=== PATIENT | male | born 1970 | race Hispanic/Latino ===

== ENCOUNTER 2019-06-07 01:59 | Inpatient (IN) | payer MEDICARE ==
--- NOTE | 2019-06-07 03:14 | XRay Report ---
CHEST 1 VIEW INDICATION: tachycardia. COMPARISON: 03/03/2018 is compared FINDINGS: SUPPORT DEVICES: None. HEART / MEDIASTINUM: No significant abnormality. LUNGS / PLEURA: Diffuse increased interstitial markings are noted. Patchy parenchymal changes present both lower lobes with a moderate size left pleural effusion No pneumothorax. ADDITIONAL FINDINGS: IMPRESSION: 1. 1. Persistent airspace changes left lower lobe with associated left pleural effusion 2. Persistent prominent interstitial markings 3. Progressive airspace changes right lower lobe Signer Name: Steven Huerta MD Signed: 06/07/2019 3:10 AM Workstation Name: [id number]
[2019-06-07] MEDS ORDERED: VANCOMYCIN/NS 1 GM/250 ML 1 GM/250 ML BAG IV ONE (03:16)
[2019-06-07] MEDS ORDERED: PIPERACILLIN/TAZOBACTAM 3.375 3.375 GM/50 ML BAG IV ONE (03:16)
[2019-06-07] MEDS ORDERED: methylPREDNISolone Sod Succinate 125 MG/2 ML INJ IV ONE (03:18)
[2019-06-07] MEDS ORDERED: IPRATROPIUM/ALBUTEROL SULFATE 3 ML AMPUL.NEB IH ONE (03:18)
[2019-06-07 03:26] LABS: Basophils % (Auto) 0.5 % (0.0-1.8); Eosinophils # (Auto) 0.3 K/mm3 (0.0-0.4); Eosinophils % (Auto) 3.4 % (0.0-4.3); Hematocrit 32.9 % (35.5-45.6); Hemoglobin 10.9 gm/dl (11.8-15.2); Lymphocytes # (Auto) 1.2 K/mm3 (1.2-5.4); Lymphocytes % (Auto) 13.2 % (13.4-35.0); Mean Corpuscular HGB Conc 33 % (32-34); Mean Corpuscular Volume 95 fl (84-94); Monocytes # (Auto) 0.7 K/mm3 (0.0-0.8); Monocytes % (Auto) 7.2 % (0.0-7.3); Platelet Count 280 K/mm3 (140-440); Red Blood Count 3.46 M/mm3 (3.65-5.03)
[2019-06-07] MEDS ORDERED: VANCOMYCIN 2,000 MG in SODIUM CHLORIDE 0.9% 500 ML 500 ML IV ONE (03:30)
[2019-06-07 03:37] LABS: INR 0.95 (0.87-1.13)
[2019-06-07 03:38] LABS: Partial Thromboplastin Time 28.7 Sec. (24.2-36.6)
[2019-06-07 03:51] LABS: Alanine Aminotransferase 6 units/L (7-56); Albumin 3.6 g/dL (3.9-5); BUN/Creatinine Ratio 40; Blood Urea Nitrogen 48 mg/dL (9-20); Calcium 9.2 mg/dL (8.4-10.2); Hemolysis Index 2
[2019-06-07 04:14] LABS: Chol/HDL Ratio 4.57 %
[2019-06-07] MEDS ORDERED: ASPIRIN 81 MG TAB CHEW PO ONE (04:23)
[2019-06-07] MEDS ORDERED: FUROSEMIDE 40 MG/4 ML INJ IV ONE (04:23)
--- NOTE | 2019-06-07 04:25 | Emergency Department Report ---
ED Chest Pain HPI - General Chief Complaint: Chest Pain Stated Complaint: YOLETTE Time Seen by Provider: 06/07/19 02:12 Source: patient, EMS Mode of arrival: Stretcher Limitations: Physical Limitation (hx cerebral palsy developmental delay) - History of Present Illness Initial Comments: Patient sent from the [facility] for concern dyspnea. Reports patient hypoxic with EMS and on home O2. Severity scale (0 -10): 5 - Related Data Home Medications Medication Instructions Recorded Confirmed Last Taken Melatonin [Melatin] 6 mg PO QHS 02/16/18 02/18/19 Unknown Acetaminophen [Acetaminophen TAB] 650 mg PO Q6HR PRN 03/03/18 02/18/19 Unknown Insulin Detemir (Nf) [Levemir 53 units SUB-Q QHS 03/03/18 02/18/19 Unknown Flextouch (Nf)] Insulin Regular, Human [HumuLIN R] 10 units SUB-Q QAM 03/03/18 02/18/19 Unknown Ipratropium/Albuterol Sulfate 1 ampul IH Q6H PRN 03/03/18 02/18/19 Unknown [DUONEB *Not for PRN Use*] Lactobacillus Acidophilus 1 each PO BID 03/03/18 02/18/19 Unknown [Acidophilus] Magnesium Oxide [Mag-Ox] 400 mg PO DAILY 03/03/18 02/18/19 Unknown guaiFENesin/DEXTROMETHORPHAN 15 ml PO Q6H PRN 03/03/18 02/18/19 Unknown [Robitussin Cough-Chest Dm Liq] Divalproex ER [DepaKOTE ER] 500 mg PO QDAY 02/18/19 02/18/19 Unknown Divalproex Sodium [Depakote 125 mg PO QHS 02/18/19 02/18/19 Unknown Sprinkle] Escitalopram Oxalate [Lexapro] 10 mg PO DAILY 02/18/19 02/18/19 Unknown Furosemide [Lasix TAB] 40 mg PO QDAY 02/18/19 02/18/19 Unknown Insulin Regular, Human [Novolin R] 10 units SQ BID 02/18/19 02/18/19 Unknown LORazepam [Ativan] 0.5 mg PO BID PRN 02/18/19 02/18/19 Unknown busPIRone [Buspar] 10 mg PO BID 02/18/19 02/18/19 Unknown Previous Rx's Medication Instructions Recorded Last Taken Type Amlodipine Besylate [Norvasc] 10 mg PO DAILY #30 tab 02/25/18 Unknown Rx Aspirin [Adult Low Dose Aspirin EC] 81 mg PO DAILY #30 tab 02/25/18 Unknown Rx Budesonide [Pulmicort] 0.5 mg IH DAILY #30 pack 02/25/18 Unknown Rx Cholecalciferol Vit D3 [Vitamin D3 5,000 unit PO QDAY 30 Days #30 tab 02/25/18 Unknown Rx 1,000 UNIT TAB] Loratadine (Nf) [Claritin (Nf)] 10 mg PO DAILY #30 tab 02/25/18 Unknown Rx Metformin HCl [Glucophage] 500 mg PO BID #60 02/25/18 Unknown Rx Metoprolol [Lopressor TAB] 50 mg PO BID #60 tab 02/25/18 Unknown Rx Multivit-Minerals/Folic Acid 0.4 mg PO DAILY #30 tab 02/25/18 Unknown Rx [Adult One Daily Multivit Tab] lisinopriL [Zestril TAB] 40 mg PO QDAY #30 tab 02/25/18 Unknown Rx Allergies Allergy/AdvReac Type Severity Reaction Status Date / Time No Known Allergies Allergy Verified 02/13/18 22:23 Heart Score - HEART Score History: Slightly suspicious EKG: Non-specific Age: 45-65 Risk factors: 1-2 risk factors Troponin: 1-3x normal limit HEART Score: 4 ED Review of Systems ROS: Stated complaint: YOLETTE Other details as noted in HPI Comment: Unobtainable due to pts medical conditions (hx cerebral palsy per ER nursing) Other: RESPIRATORY: No shortness of breath ED Past Medical Hx - Past Medical History Previous Medical History?: Yes Hx Hypertension: Yes Hx Congestive Heart Failure: Yes Hx Diabetes: Yes Hx Renal Disease: Yes (baseline cr 1.9) Additional medical history: cerebral palsy - Surgical History Past Surgical History?: Yes Additional Surgical History: Right AKA, abdominal surgery - Social History Smoking Status: Never Smoker Substance Use Type: None - Medications Home Medications: Home Medications Medication Instructions Recorded Confirmed Last Taken Type Melatonin [Melatin] 6 mg PO QHS 02/16/18 02/18/19 Unknown History Amlodipine Besylate [Norvasc] 10 mg PO DAILY #30 tab 18 02/18/19 Unknown Rx Aspirin [Adult Low Dose Aspirin EC] 81 mg PO DAILY #30 tab 02/25/18 02/18/19 Unknown Rx Budesonide [Pulmicort] 0.5 mg IH DAILY #30 pack 02/25/18 02/18/19 Unknown Rx Cholecalciferol Vit D3 [Vitamin D3 5,000 unit PO QDAY 30 Days #30 tab 02/25/18 02/18/19 Unknown Rx 1,000 UNIT TAB] Loratadine (Nf) [Claritin (Nf)] 10 mg PO DAILY #30 tab 02/25/18 02/18/19 Unknown Rx Metformin HCl [Glucophage] 500 mg PO BID #60 02/25/18 02/18/19 Unknown Rx Metoprolol [Lopressor TAB] 50 mg PO BID #60 tab 02/25/18 02/18/19 Unknown Rx Multivit-Minerals/Folic Acid 0.4 mg PO DAILY #30 tab 02/25/18 02/18/19 Unknown Rx [Adult One Daily Multivit Tab] lisinopriL [Zestril TAB] 40 mg PO QDAY #30 tab 02/25/18 02/18/19 Unknown Rx Acetaminophen [Acetaminophen TAB] 650 mg PO Q6HR PRN 03/03/18 02/18/19 Unknown History Insulin Detemir (Nf) [Levemir 53 units SUB-Q QHS 03/03/18 02/18/19 Unknown History Flextouch (Nf)] Insulin Regular, Human [HumuLIN R] 10 units SUB-Q QAM 03/03/18 02/18/19 Unknown History Ipratropium/Albuterol Sulfate 1 ampul IH Q6H PRN 03/03/18 02/18/19 Unknown History [DUONEB *Not for PRN Use*] Lactobacillus Acidophilus 1 each PO BID 03/03/18 02/18/19 Unknown History [Acidophilus] Magnesium Oxide [Mag-Ox] 400 mg PO DAILY 03/03/18 02/18/19 Unknown History guaiFENesin/DEXTROMETHORPHAN 15 ml PO Q6H PRN 03/03/18 02/18/19 Unknown History [Robitussin Cough-Chest Dm Liq] Divalproex ER [DepaKOTE ER] 500 mg PO QDAY 02/18/19 02/18/19 Unknown History Divalproex Sodium [Depakote 125 mg PO QHS 02/18/19 02/18/19 Unknown History Sprinkle] Escitalopram Oxalate [Lexapro] 10 mg PO DAILY 02/18/19 02/18/19 Unknown History Furosemide [Lasix TAB] 40 mg PO QDAY 02/18/19 02/18/19 Unknown History Insulin Regular, Human [Novolin R] 10 units SQ BID 02/18/19 02/18/19 Unknown History LORazepam [Ativan] 0.5 mg PO BID PRN 02/18/19 02/18/19 Unknown History busPIRone [Buspar] 10 mg PO BID 02/18/19 02/18/19 Unknown History ED Physical Exam - General Limitations: Physical Limitation - Other Other exam information: GENERAL: Patient in mild acute distress HEAD: Normocephalic, atraumatic EYES: PERRLA, EOM intact, no scleral icterus, no conjunctival hemorrhage, visual lala and acuity wnl NOSE: No tenderness, discharge, sinus tenderness MOUTH: No erythema, bleeding, exudate HEART: Tachycardia, no murmur, S1-S2 are auscultated, no edema, pulses are symmetric LUNGS: Mild respiratory distress. Bilateral breath sounds, mild tachypnea, mild retractions, mild wheezing and rales ABDOMEN: Normal bowel sounds, abdomen soft, no tenderness, no rebound, no guarding, no distention, no masses, no CVA tenderness MUSCULOSKELETAL: Normal joint range of motion, no redness, no swelling, no tenderness NEUROLOGIC: Alert, Gross motor/sensation intact SKIN: Skin is warm and dry, scaly ED Course Vital Signs 06/07/19 06/07/19 06/07/19 02:05 02:28 03:46 Temperature 97.3 F L Pulse Rate 107 H 105 H Pulse Rate [ Anterior Throughout] Respiratory 19 17 22 Rate Respiratory Rate [Anterior Throughout] Blood Pressure 174/88 174/88 Blood Pressure 174/88 [Left] O2 Sat by Pulse 97 97 91 Oximetry 06/07/19 06/07/19 04:43 04:48 Temperature Pulse Rate Pulse Rate [ 124 H Anterior Throughout] Respiratory Rate Respiratory 24 Rate [Anterior Throughout] Blood Pressure Blood Pressure [Left] O2 Sat by Pulse 94 Oximetry ED Medical Decision Making - Lab Data Result diagrams: 06/07/19 02:45 06/07/19 02:45 Laboratory Results - last 24 hr 06/07/19 06/07/19 06/07/19 02:45 02:45 02:45 WBC 9.1 RBC 3.46 L Hgb 10.9 L Hct 32.9 L MCV 95 H MCH 32 MCHC 33 RDW 14.0 Plt Count 280 Lymph % (Auto) 13.2 L Kay % (Auto) 7.2 Eos % (Auto) 3.4 Baso % (Auto) 0.5 Lymph # 1.2 Kay # 0.7 Eos # 0.3 Baso # 0.0 Seg Neutrophils % 75.7 H Seg Neutrophils # 6.9 PT 12.8 INR 0.95 APTT 28.7 POC ABG pH POC ABG pO2 POC ABG HCO3 POC ABG Total CO2 POC ABG O2 Sat POC ABG Base Excess FiO2 Sodium Potassium Chloride Carbon Dioxide Anion Gap BUN Creatinine Estimated GFR BUN/Creatinine Ratio Glucose Lactic Acid Calcium Magnesium 2.70 H Total Bilirubin AST ALT Alkaline Phosphatase Troponin T 0.134 H* NT-Pro-B Natriuret Pep 1129 H Total Protein Albumin Albumin/Globulin Ratio Triglycerides 153 H Cholesterol 183 LDL Cholesterol Direct 109 HDL Cholesterol 40 Cholesterol/HDL Ratio 4.57 06/07/19 06/07/19 06/07/19 02:45 02:45 02:50 WBC RBC Hgb Hct MCV MCH MCHC RDW Plt Count Lymph % (Auto) Kay % (Auto) Eos % (Auto) Baso % (Auto) Lymph # Kay # Eos # Baso # Seg Neutrophils % Seg Neutrophils # PT INR APTT POC ABG pH 7.341 L POC ABG pO2 90 POC ABG HCO3 39.1 POC ABG Total CO2 41 POC ABG O2 Sat 96 POC ABG Base Excess 13 FiO2 60 Sodium 141 Potassium 5.1 H Chloride 94.0 L Carbon Dioxide 33 H Anion Gap 19 BUN 48 H Creatinine 1.2 Estimated GFR > 60 BUN/Creatinine Ratio 40 Glucose 195 H Lactic Acid 2.20 H* Calcium 9.2 Magnesium Total Bilirubin 0.20 AST 11 ALT 6 L Alkaline Phosphatase 63 Troponin T NT-Pro-B Natriuret Pep Total Protein 7.5 Albumin 3.6 L Albumin/Globulin Ratio 0.9 Triglycerides Cholesterol LDL Cholesterol Direct HDL Cholesterol Cholesterol/HDL Ratio - EKG Data When compared to previous EKG there are: no significant change - Radiology Data Radiology results: report reviewed - Medical Decision Making At 0425 Respiratory reports pC02 level of 72.3. Patient comfortable. Plan admit for further evaluation. Hospitalist updated and accepts admission. Over course of evaluation patient refused BIPAP. Chart review paperwork from the [facility] shows patient DNR. Patient agreeable to tolerate Ventimask. Critical Care Time: Yes Critical care time in (mins) excluding proc time.: 35 Critical care attestation.: If time is entered above; I have spent that time in minutes in the direct care of this critically ill patient, excluding procedure time. 35 ED Disposition Clinical Impression: Hypoxia, Elevated troponin, Acute respiratory failure with hypoxia and hypercapnia Pneumonia Qualifiers: Pneumonia type: due to unspecified organism Laterality: unspecified laterality Lung location: unspecified part of lung Qualified Code(s): J18.9 - Pneumonia, unspecified organism Disposition: DC-09 OP ADMIT IP TO THIS HOSP Is pt being admited?: Yes Condition: Stable Instructions: Bacterial Pneumonia (ED) Referrals: PRIMARY CARE, [Primary Care Provider] - 3-5 Days
[2019-06-07] MEDS ORDERED: DEXTROSE 50% IN WATER (25GM) 50 ML SYRINGE IV PRN (05:09)
[2019-06-07] MEDS ORDERED: ALBUTEROL 2.5 MG/3 ML NEBU IH PRN (05:09)
[2019-06-07] MEDS ORDERED: NITROGLYCERIN 0.4 MG TAB SUBL SL PRN (05:09)
[2019-06-07] MEDS ORDERED: ONDANSETRON 4 MG/2 ML INJ IV PRN (05:09)
--- NOTE | 2019-06-07 06:10 | History and Physical Report ---
<DIANA PURCELL - Last Filed: 06/07/19 06:29> History of Present Illness Date of examination: 06/07/19 Date of admission: 06/07/2019 Chief complaint: YOLETTE History of present illness: 48-year-old male who is a resident at [facility] with history of debility, right AKA, chronic respiratory failure on home O2,hypertens ion, CHF, diabetes, CKD, cerebral palsy who presents to [facility] ED via EMS with complaints of shortness of breath and difficulty breathing. Of note patient is a poor historian and provides limited history. Patient states that he has been experiencing increased shortness of breath despite using home O2 for the past couple of days. EMS reports patient was hypoxic on 2 L nasal cannula. She was transferred to our facility for further evaluation and treatment. Past History Past Medical History: diabetes, heart failure, hyperthyroidism, renal failure, other (Cerebral palsy, right AKA, chronic respiratory failure on home O2) Past Surgical History: Other (Right AKA, abdominal surgery) Social history: other (Resident of [facility]) Family history: no significant family history Medications and Allergies Allergies Allergy/AdvReac Type Severity Reaction Status Date / Time No Known Allergies Allergy Verified 02/13/18 22:23 Home Medications Medication Instructions Recorded Confirmed Last Taken Type Melatonin [Melatin] 6 mg PO QHS 02/16/18 06/07/19 Unknown History Metoprolol [Lopressor TAB] 50 mg PO BID #60 tab 02/25/18 06/07/19 Unknown Rx Acetaminophen [Acetaminophen TAB] 650 mg PO Q6HR PRN 03/03/18 06/07/19 Unknown History Insulin Detemir (Nf) [Levemir 53 units SUB-Q QHS 03/03/18 06/07/19 Unknown History Flextouch (Nf)] Ipratropium/Albuterol Sulfate 1 ampul IH Q6H PRN 03/03/18 06/07/19 Unknown History [DUONEB *Not for PRN Use*] guaiFENesin/DEXTROMETHORPHAN 15 ml PO Q6H PRN 03/03/18 06/07/19 Unknown History [Robitussin Cough-Chest Dm Liq] Divalproex Sodium [Depakote 125 mg PO QHS 02/18/19 06/07/19 Unknown History Sprinkle] Insulin Regular, Human [Novolin R] 10 units SQ PRN 02/18/19 06/07/19 Unknown History LORazepam [Ativan] 0.5 mg PO BID PRN 02/18/19 06/07/19 Unknown History Insulin Detemir [Levemir VIAL] 53 unit SQ QHS 06/07/19 06/07/19 Unknown History Insulin Regular, Human [Novolin R] 10 unit SQ BID 06/07/19 06/07/19 Unknown History traZODone [Desyrel] 50 mg PO QHS 06/07/19 06/07/19 Unknown History Active Meds: Active Medications Acetaminophen (Tylenol) 650 mg PO Q4H PRN PRN Reason: Pain MILD(1-3)/Fever >100.5/PEREYRA Albuterol (Proventil) 2.5 mg IH Q3HRT PRN PRN Reason: Shortness Of Breath Amlodipine Besylate (Amlodipine) 10 mg PO DAILY [facility] Aspirin (Halfprin Ec) 81 mg PO DAILY [facility] Budesonide (Pulmicort) 0.5 mg IH Q12HRT [facility] Buspirone HCl (Buspar) 10 mg PO BID [facility] Cholecalciferol (Vitamin D3) 5,000 unit PO QDAY [facility] Dextrose (D50w (25gm) Syringe) 50 ml IV Q30MIN PRN; Protocol PRN Reason: Hypoglycemia Furosemide (Lasix) 40 mg IV BID@0600,1800 [facility] Heparin Sodium (Porcine) (Heparin) 5,000 unit SUB-Q Q12HR [facility] Piperacillin Sod/Tazobactam Sod (Zosyn/Ns 3.375gm/50ml) 3.375 gm in 50 mls @ 100 mls/hr IV Q8HR [facility]; Protocol Insulin Glargine (Lantus) 20 units SUB-Q QHS [facility] Insulin Human Lispro (Humalog) 0 unit SUB-Q ACHS [facility]; Protocol Lisinopril (Zestril) 40 mg PO QDAY [facility] Nitroglycerin (Nitrostat) 0.4 mg SL .Q5MIN PRN PRN Reason: Chest Pain Ondansetron HCl (Zofran) 4 mg IV Q8H PRN PRN Reason: Nausea And Vomiting Sodium Chloride (Sodium Chloride Flush Syringe 10 Ml) 10 ml IV BID [facility] Sodium Chloride (Sodium Chloride Flush Syringe 10 Ml) 10 ml IV PRN PRN PRN Reason: LINE FLUSH Review of Systems All systems: negative Cardiovascular: edema, shortness of breath, dyspnea on exertion Respiratory: cough (With occasional clear sputum production), shortness of breat h, dyspnea on exertion Exam - Physical Exam Narrative exam: Physical exam General appearance: Present: No acute distress, alert and oriented 3, obese, adult male - EENT Eyes: Present: PERRL, EOM intact ENT: hearing intact, missing teeth - Neck Neck: Present: supple, normal ROM - Respiratory Respiratory effort: Non-labored, on supplemental oxygen Respiratory: Crackles - Cardiovascular Heart rate: 105 (bpm) Rhythm: Sinus tachycardia Heart Sounds: Present: S1 & S2. Absent: rub, click - Extremities Extremities: no ischemia, pulses intact, right AKA, - Peripheral Assessment Peripheral Pulses: within normal limits - Abdominal General gastrointestinal: Obese, soft, non-tender, normal bowel sounds - Integumentary Integumentary: Present: warm, dry - Musculoskeletal Musculoskeletal: Able to move extremities -Neurological Neurological: CN II-XII intact - Psychiatric Psychiatric: cooperative - Constitutional Vitals: Temp Pulse Resp BP Pulse Ox 97.3 F L 124 H 24 174/88 94 06/07/19 02:05 06/07/19 04:43 06/07/19 04:43 06/07/19 02:28 06/07/19 04:48 Results - Labs CBC & Chem 7: 06/07/19 02:45 06/07/19 02:45 Labs: Laboratory Last Values WBC 9.1 K/mm3 (4.5-11.0) 06/07/19 02:45 RBC 3.46 M/mm3 (3.65-5.03) L 06/07/19 02:45 Hgb 10.9 gm/dl (11.8-15.2) L 06/07/19 02:45 Hct 32.9 % (35.5-45.6) L 06/07/19 02:45 MCV 95 fl (84-94) H 06/07/19 02:45 MCH 32 pg (28-32) 06/07/19 02:45 MCHC 33 % (32-34) 06/07/19 02:45 RDW 14.0 % (13.2-15.2) 06/07/19 02:45 Plt Count 280 K/mm3 (140-440) 06/07/19 02:45 Lymph % (Auto) 13.2 % (13.4-35.0) L 06/07/19 02:45 [place] % (Auto) 7.2 % (0.0-7.3) 06/07/19 02:45 Eos % (Auto) 3.4 % (0.0-4.3) 06/07/19 02:45 Baso % (Auto) 0.5 % (0.0-1.8) 06/07/19 02:45 Lymph # 1.2 K/mm3 (1.2-5.4) 06/07/19 02:45 [place] # 0.7 K/mm3 (0.0-0.8) 06/07/19 02:45 Eos # 0.3 K/mm3 (0.0-0.4) 06/07/19 02:45 Baso # 0.0 K/mm3 (0.0-0.1) 06/07/19 02:45 Seg Neutrophils % 75.7 % (40.0-70.0) H 06/07/19 02:45 Seg Neutrophils # 6.9 K/mm3 (1.8-7.7) 06/07/19 02:45 PT 12.8 Sec. (12.2-14.9) 06/07/19 02:45 INR 0.95 (0.87-1.13) 06/07/19 02:45 APTT 28.7 Sec. (24.2-36.6) 06/07/19 02:45 POC ABG pH 7.341 (7.35-7.45) L 06/07/19 02:50 POC ABG pO2 90 (80-105) 06/07/19 02:50 POC ABG HCO3 39.1 (22-26 mml/L) 06/07/19 02:50 POC ABG Total CO2 41 (23-27mmol/L) 06/07/19 02:50 POC ABG O2 Sat 96 06/07/19 02:50 POC ABG Base Excess 13 ((-2) - (+3)mmol/L) 06/07/19 02:50 FiO2 60 % 06/07/19 02:50 Sodium 141 mmol/L (137-145) 06/07/19 02:45 Potassium 5.1 mmol/L (3.6-5.0) H 06/07/19 02:45 Chloride 94.0 mmol/L (98-107) L 06/07/19 02:45 Carbon Dioxide 33 mmol/L (22-30) H 06/07/19 02:45 Anion Gap 19 mmol/L 06/07/19 02:45 BUN 48 mg/dL (9-20) H 06/07/19 02:45 Creatinine 1.2 mg/dL (0.8-1.5) 06/07/19 02:45 Estimated GFR > 60 ml/min 06/07/19 02:45 BUN/Creatinine Ratio 40 % 06/07/19 02:45 Glucose 195 mg/dL (75-100) H 06/07/19 02:45 Hemoglobin A1c 7.2 % (4-6) H 06/07/19 02:45 Lactic Acid 2.80 mmol/L (0.7-2.0) H* 06/07/19 04:31 Calcium 9.2 mg/dL (8.4-10.2) 06/07/19 02:45 Magnesium 2.70 mg/dL (1.7-2.3) H 06/07/19 02:45 Total Bilirubin 0.20 mg/dL (0.1-1.2) 06/07/19 02:45 AST 11 units/L (5-40) 06/07/19 02:45 ALT 6 units/L (7-56) L 06/07/19 02:45 Alkaline Phosphatase 63 units/L (35-129) 06/07/19 02:45 Troponin T 0.134 ng/mL (0.00-0.029) H* 06/07/19 02:45 NT-Pro-B Natriuret Pep 1129 pg/mL (0-900) H 06/07/19 02:45 Total Protein 7.5 g/dL (6.3-8.2) 06/07/19 02:45 Albumin 3.6 g/dL (3.9-5) L 06/07/19 02:45 Albumin/Globulin Ratio 0.9 % 06/07/19 02:45 Triglycerides 153 mg/dL (2-149) H 06/07/19 02:45 Cholesterol 183 mg/dL (50-199) 06/07/19 02:45 LDL Cholesterol Direct 109 mg/dL (50-130) 06/07/19 02:45 HDL Cholesterol 40 mg/dL (40-59) 06/07/19 02:45 Cholesterol/HDL Ratio 4.57 % 06/07/19 02:45 - Imaging and Cardiology Imaging and Cardiology: CXR: Impression: 1. Persistent airspace changes left lower lobe with associated left pleural effusion 2. Persistent prominent interstitial markings 3. Progressive airspace changes right lower lobe Assessment and Plan Assessment and plan: 48-year-old male who is a resident at [facility] with history of debility, right AKA, chronic respiratory failure on home O2,hypertension, CHF, diabetes, CKD, cerebral palsy who presents to [facility] ED via EMS with complaints of shortness of breath and difficulty breathing. SIRS -Lactic acidosis 2.20 -Hypothermic with temperature 97.3 -Heart rate >90 -No leukocytosis -Cultures pending -Start empirically on Zosyn Acute Exacerbation CHF -EF 50 to 55% seen on Echo (02/2018) -BNP elevated at [id number] -Troponin elevated 0.134 (likely troponin leak due to CHF exacerbation), will continue to trend -CXR shows: persistent airspace changes left lower lobe with associated left pleural effusion, persistent prominent interstitial markings, progressive airspace changes in the right lower lobe -Patient refused cardiac cath d/t being unable to tolerate positioning for procedure (02/2018) -Start IV Lasix twice daily -On ASA and FOREIGN -Cardiology consulted Acute hypercapnic respiratory failure -Baseline home oxygen requirements of 2L prn -Currently on BiPAP -ABG 7.3/27 point /39.1 -Monitor saturations -Monitor CO2 -Schedule Pulmicort, albuterol as needed -IV systemic steroids -Continue supplemental oxygen wean as tolerated Pleural effusion -Left pleural effusion seen on today's CXR -Pulmonary consulted HTN -Monitor BP -Resume home hypertensive meds Anemia -Hemoglobin on admission 10.9 -No S/S of active bleeding -Continue to monitor hemoglobin -Transfuse as needed DM -POC BG monitoring -Scheduled Lantus -SSI coverage prn -HgbA1C pending Debility -History of cerebral palsy -Right AKA -Bedbound -Every 2 hours positioning to avoid skin breakdown DVT PPX -On Heparin Advance Directives: No VTE prophylaxis?: Chemical Plan of care discussed with patient/family: Yes <YVONNE MARCUS - Last Filed: 06/07/19 07:11> History of Present Illness Date of admission: 06/07/19 04:49 Medications and Allergies Active Meds: Active Medications Acetaminophen (Tylenol) 650 mg PO Q4H PRN PRN Reason: Pain MILD(1-3)/Fever >100.5/PEREYRA Albuterol (Proventil) 2.5 mg IH Q3HRT PRN PRN Reason: Shortness Of Breath Amlodipine Besylate (Amlodipine) 10 mg PO DAILY [facility] Aspirin (Halfprin Ec) 81 mg PO DAILY [facility] Budesonide (Pulmicort) 0.5 mg IH Q12HRT [facility] Buspirone HCl (Buspar) 10 mg PO BID [facility] Cholecalciferol (Vitamin D3) 5,000 unit PO QDAY [facility] Dextrose (D50w (25gm) Syringe) 50 ml IV Q30MIN PRN; Protocol PRN Reason: Hypoglycemia Furosemide (Lasix) 40 mg IV BID@0600,1800 [facility] Heparin Sodium (Porcine) (Heparin) 5,000 unit SUB-Q Q12HR [facility] Piperacillin Sod/Tazobactam Sod (Zosyn/Ns 3.375gm/50ml) 3.375 gm in 50 mls @ 100 mls/hr IV Q8HR [facility]; Protocol Insulin Glargine (Lantus) 20 units SUB-Q QHS [facility] Insulin Human Lispro (Humalog) 0 unit SUB-Q ACHS [facility]; Protocol Lisinopril (Zestril) 40 mg PO QDAY [facility] Methylprednisolone Sodium Succinate (Solu-Medrol) 80 mg IV Q8HR [facility] Nitroglycerin (Nitrostat) 0.4 mg SL .Q5MIN PRN PRN Reason: Chest Pain Ondansetron HCl (Zofran) 4 mg IV Q8H PRN PRN Reason: Nausea And Vomiting Sodium Chloride (Sodium Chloride Flush Syringe 10 Ml) 10 ml IV BID [facility] Sodium Chloride (Sodium Chloride Flush Syringe 10 Ml) 10 ml IV PRN PRN PRN Reason: LINE FLUSH Exam - Constitutional Vitals: Temp Pulse Resp BP Pulse Ox 97.2 F L 111 H 15 154/70 93 06/07/19 06:50 06/07/19 06:50 06/07/19 06:50 06/07/19 06:50 06/07/19 06:50 Results - Labs CBC & Chem 7: 06/07/19 02:45 06/07/19 02:45 Labs: Laboratory Last Values WBC 9.1 K/mm3 (4.5-11.0) 06/07/19 02:45 RBC 3.46 M/mm3 (3.65-5.03) L 06/07/19 02:45 Hgb 10.9 gm/dl (11.8-15.2) L 06/07/19 02:45 Hct 32.9 % (35.5-45.6) L 06/07/19 02:45 MCV 95 fl (84-94) H 06/07/19 02:45 MCH 32 pg (28-32) 06/07/19 02:45 MCHC 33 % (32-34) 06/07/19 02:45 RDW 14.0 % (13.2-15.2) 06/07/19 02:45 Plt Count 280 K/mm3 (140-440) 06/07/19 02:45 Lymph % (Auto) 13.2 % (13.4-35.0) L 06/07/19 02:45 [place] % (Auto) 7.2 % (0.0-7.3) 06/07/19 02:45 Eos % (Auto) 3.4 % (0.0-4.3) 06/07/19 02:45 Baso % (Auto) 0.5 % (0.0-1.8) 06/07/19 02:45 Lymph # 1.2 K/mm3 (1.2-5.4) 06/07/19 02:45 [place] # 0.7 K/mm3 (0.0-0.8) 06/07/19 02:45 Eos # 0.3 K/mm3 (0.0-0.4) 06/07/19 02:45 Baso # 0.0 K/mm3 (0.0-0.1) 06/07/19 02:45 Seg Neutrophils % 75.7 % (40.0-70.0) H 06/07/19 02:45 Seg Neutrophils # 6.9 K/mm3 (1.8-7.7) 06/07/19 02:45 PT 12.8 Sec. (12.2-14.9) 06/07/19 02:45 INR 0.95 (0.87-1.13) 06/07/19 02:45 APTT 28.7 Sec. (24.2-36.6) 06/07/19 02:45 POC ABG pH 7.341 (7.35-7.45) L 06/07/19 02:50 POC ABG pO2 90 (80-105) 06/07/19 02:50 POC ABG HCO3 39.1 (22-26 mml/L) 06/07/19 02:50 POC ABG Total CO2 41 (23-27mmol/L) 06/07/19 02:50 POC ABG O2 Sat 96 06/07/19 02:50 POC ABG Base Excess 13 ((-2) - (+3)mmol/L) 06/07/19 02:50 FiO2 60 % 06/07/19 02:50 Sodium 141 mmol/L (137-145) 06/07/19 02:45 Potassium 5.1 mmol/L (3.6-5.0) H 06/07/19 02:45 Chloride 94.0 mmol/L (98-107) L 06/07/19 02:45 Carbon Dioxide 33 mmol/L (22-30) H 06/07/19 02:45 Anion Gap 19 mmol/L 06/07/19 02:45 BUN 48 mg/dL (9-20) H 06/07/19 02:45 Creatinine 1.2 mg/dL (0.8-1.5) 06/07/19 02:45 Estimated GFR > 60 ml/min 06/07/19 02:45 BUN/Creatinine Ratio 40 % 06/07/19 02:45 Glucose 195 mg/dL (75-100) H 06/07/19 02:45 Hemoglobin A1c 7.2 % (4-6) H 06/07/19 02:45 Lactic Acid 2.80 mmol/L (0.7-2.0) H* 06/07/19 04:31 Calcium 9.2 mg/dL (8.4-10.2) 06/07/19 02:45 Magnesium 2.70 mg/dL (1.7-2.3) H 06/07/19 02:45 Total Bilirubin 0.20 mg/dL (0.1-1.2) 06/07/19 02:45 AST 11 units/L (5-40) 06/07/19 02:45 ALT 6 units/L (7-56) L 06/07/19 02:45 Alkaline Phosphatase 63 units/L (35-129) 06/07/19 02:45 Total Creatine Kinase 121 units/L (55-170) 06/07/19 06:01 CK-MB (CK-2) 3.0 ng/mL (0.0-4.0) 06/07/19 06:01 CK-MB (CK-2) Rel Index 2.4 (0-4) 06/07/19 06:01 Troponin T 0.134 ng/mL (0.00-0.029) H* 06/07/19 02:45 NT-Pro-B Natriuret Pep 1129 pg/mL (0-900) H 06/07/19 02:45 Total Protein 7.5 g/dL (6.3-8.2) 06/07/19 02:45 Albumin 3.6 g/dL (3.9-5) L 06/07/19 02:45 Albumin/Globulin Ratio 0.9 % 06/07/19 02:45 Triglycerides 153 mg/dL (2-149) H 06/07/19 02:45 Cholesterol 183 mg/dL (50-199) 06/07/19 02:45 LDL Cholesterol Direct 109 mg/dL (50-130) 06/07/19 02:45 HDL Cholesterol 40 mg/dL (40-59) 06/07/19 02:45 Cholesterol/HDL Ratio 4.57 % 06/07/19 02:45 Assessment and Plan Assessment and plan: Patient seen and examined, very difficult to obtain a history from the patient. His work-up is significant for pneumonia and pleural effusion. Continue antibiotics and plan as stated above. Add steroids to his regimen, he has diffuse rhonchi, refuses to wear BiPAP
[2019-06-07] MEDS: BUDESONIDE 0.5 MG/2 ML NEBU IH SCH ×2 (08:58→21:48)
[2019-06-07] MEDS: HEPARIN 5,000 UNIT/1 ML VIAL SUB-Q SCH ×2 (10:14→22:29)
[2019-06-07] MEDS: amLODIPine 10 MG TAB PO SCH (10:16)
[2019-06-07] MEDS: ASPIRIN EC 81 MG TAB PO SCH (10:16)
[2019-06-07] MEDS: LISINOPRIL 40 MG TAB PO SCH (10:17)
[2019-06-07] MEDS: INSULIN LISPRO 100 UNIT/ML SUB-Q SCH ×4 (10:26→22:25)
--- NOTE | 2019-06-07 10:52 | Consultation ---
History of Present Illness Consult date: 06/07/19 Consult reason: congestive heart failure, elevated troponin History of present illness: 48-year old male who resides in a [facility]. He has morbid obesity, diabetes, COPD and peripheral arterial disease with previous above-knee amputation. He also has a history of heart failure with a preserve ejection fraction of 50-55% by an echocardiogram a year ago. A year ago, a cardiac cath was aborted as the patient was unable to tolerate laying on the table for the procedure due to his respiratory status and chronic back pain. As a result the patient's heart failure was managed conservatively. Patient was brought to this hospital with shortness of breath, wheezing and acute hypoxic respiratory failure. Its reported an O2 saturation in the 70's on presentation. Chest x-ray reports interstitial edema, right lower lobe airspace changes with left pleural effusion. An ECG is sinus rhythm ,left ventricular hypertrophy voltage, left axis deviation, old anterior infarct. Past History Past Medical History: other (Cerebral palsy, right AKA, chronic respiratory failure on home O2) Past Surgical History: Other (Right AKA, abdominal surgery) Social history: other (Resident of [facility]) Family history: no significant family history Medications and Allergies Allergies Allergy/AdvReac Type Severity Reaction Status Date / Time No Known Allergies Allergy Verified 02/13/18 22:23 Home Medications Medication Instructions Recorded Confirmed Last Taken Type Melatonin [Melatin] 6 mg PO QHS 02/16/18 06/07/19 Unknown History Metoprolol [Lopressor TAB] 50 mg PO BID #60 tab 02/25/18 06/07/19 Unknown Rx Acetaminophen [Acetaminophen TAB] 650 mg PO Q6HR PRN 03/03/18 06/07/19 Unknown History Insulin Detemir (Nf) [Levemir 53 units SUB-Q QHS 03/03/18 06/07/19 Unknown History Flextouch (Nf)] Ipratropium/Albuterol Sulfate 1 ampul IH Q6H PRN 03/03/18 06/07/19 Unknown History [DUONEB *Not for PRN Use*] guaiFENesin/DEXTROMETHORPHAN 15 ml PO Q6H PRN 03/03/18 06/07/19 Unknown History [Robitussin Cough-Chest Dm Liq] Divalproex Sodium [Depakote 125 mg PO QHS 02/18/19 06/07/19 Unknown History Sprinkle] Insulin Regular, Human [Novolin R] 10 units SQ PRN 02/18/19 06/07/19 Unknown History LORazepam [Ativan] 0.5 mg PO BID PRN 02/18/19 06/07/19 Unknown History Insulin Detemir [Levemir VIAL] 53 unit SQ QHS 06/07/19 06/07/19 Unknown History Insulin Regular, Human [Novolin R] 10 unit SQ BID 06/07/19 06/07/19 Unknown History traZODone [Desyrel] 50 mg PO QHS 06/07/19 06/07/19 Unknown History Active Meds: Active Medications Acetaminophen (Tylenol) 650 mg PO Q4H PRN PRN Reason: Pain MILD(1-3)/Fever >100.5/PEREYRA Albuterol (Proventil) 2.5 mg IH Q3HRT PRN PRN Reason: Shortness Of Breath Amlodipine Besylate (Amlodipine) 10 mg PO DAILY [facility] Last Admin: 06/07/19 10:16 Dose: 10 mg Documented by: Aspirin (Halfprin Ec) 81 mg PO DAILY [facility] Last Admin: 06/07/19 10:16 Dose: 81 mg Documented by: Budesonide (Pulmicort) 0.5 mg IH Q12HRT [facility] Last Admin: 06/07/19 08:58 Dose: 0.5 mg Documented by: Buspirone HCl (Buspar) 10 mg PO BID [facility] Cholecalciferol (Vitamin D3) 5,000 unit PO QDAY [facility] Dextrose (D50w (25gm) Syringe) 50 ml IV Q30MIN PRN; Protocol PRN Reason: Hypoglycemia Furosemide (Lasix) 40 mg IV BID@0600,1800 [facility] Heparin Sodium (Porcine) (Heparin) 5,000 unit SUB-Q Q12HR [facility] Last Admin: 06/07/19 10:14 Dose: 5,000 unit Documented by: Piperacillin Sod/Tazobactam Sod (Zosyn/Ns 3.375gm/50ml) 3.375 gm in 50 mls @ 100 mls/hr IV Q8HR [facility]; Protocol Insulin Glargine (Lantus) 20 units SUB-Q QHS [facility] Insulin Human Lispro (Humalog) 0 unit SUB-Q ACHS [facility]; Protocol Last Admin: 06/07/19 10:26 Dose: 6 unit Documented by: Lisinopril (Zestril) 40 mg PO QDAY [facility] Last Admin: 06/07/19 10:17 Dose: 40 mg Documented by: Methylprednisolone Sodium Succinate (Solu-Medrol) 80 mg IV Q8HR [facility] Nitroglycerin (Nitrostat) 0.4 mg SL .Q5MIN PRN PRN Reason: Chest Pain Ondansetron HCl (Zofran) 4 mg IV Q8H PRN PRN Reason: Nausea And Vomiting Sodium Chloride (Sodium Chloride Flush Syringe 10 Ml) 10 ml IV BID [facility] Last Admin: 06/07/19 10:17 Dose: 10 ml Documented by: Sodium Chloride (Sodium Chloride Flush Syringe 10 Ml) 10 ml IV PRN PRN PRN Reason: LINE FLUSH Physical Examination Vital Signs Temp Pulse Resp BP Pulse Ox 97.3 F L 112 H 24 174/88 57 L 06/07/19 02:05 06/07/19 02:05 06/07/19 02:05 06/07/19 02:05 06/07/19 02:05 General appearance: no acute distress HEENT: Positive: PERRL Cardiac: Positive: Reg Rate and Rhythm Lungs: Positive: Decreased Breath Sounds, Wheezes Results 06/07/19 02:45 06/07/19 02:45 Cardiac Enzymes 06/07/19 06/07/19 Range/Units 02:45 06:01 AST 11 (5-40) units/L CK-MB (CK-2) 3.0 (0.0-4.0) ng/mL Coagulation 06/07/19 Range/Units 02:45 PT 12.8 (12.2-14.9) Sec. INR 0.95 (0.87-1.13) APTT 28.7 (24.2-36.6) Sec. Lipids 06/07/19 Range/Units 02:45 Triglycerides 153 H (2-149) mg/dL Cholesterol 183 (50-199) mg/dL HDL Cholesterol 40 (40-59) mg/dL Cholesterol/HDL Ratio 4.57 % CBC 06/07/19 Range/Units 02:45 WBC 9.1 (4.5-11.0) K/mm3 RBC 3.46 L (3.65-5.03) M/mm3 Hgb 10.9 L (11.8-15.2) gm/dl Hct 32.9 L (35.5-45.6) % Plt Count 280 (140-440) K/mm3 Lymph # 1.2 (1.2-5.4) K/mm3 [place] # 0.7 (0.0-0.8) K/mm3 Eos # 0.3 (0.0-0.4) K/mm3 Baso # 0.0 (0.0-0.1) K/mm3 Comprehensive Metabolic Panel 06/07/19 Range/Units 02:45 Sodium 141 (137-145) mmol/L Potassium 5.1 H (3.6-5.0) mmol/L Chloride 94.0 L (98-107) mmol/L Carbon Dioxide 33 H (22-30) mmol/L BUN 48 H (9-20) mg/dL Creatinine 1.2 (0.8-1.5) mg/dL Glucose 195 H (75-100) mg/dL Calcium 9.2 (8.4-10.2) mg/dL AST 11 (5-40) units/L ALT 6 L (7-56) units/L Alkaline Phosphatase 63 (35-129) units/L Total Protein 7.5 (6.3-8.2) g/dL Albumin 3.6 L (3.9-5) g/dL
[2019-06-07] MEDS: busPIRone 10 MG TAB PO SCH ×2 (12:22→22:58)
[2019-06-07] MEDS: PIPERACILLIN/TAZOBACTAM 3.375 3.375 GM/50 ML BAG IV SCH ×2 (12:23→23:00)
[2019-06-07] MEDS: CHOLECALCIFEROL (VIT D3) 5,000 UNIT TAB PO SCH (12:23)
[2019-06-07] MEDS: methylPREDNISolone Sod Succinate 125 MG/2 ML INJ IV SCH ×2 (13:18→23:06)
--- NOTE | 2019-06-07 14:03 | Event Note ---
Date: 06/07/19 Patient presents with shortness of breath, diagnosed with acute on chronic resp failure. I have seen and examined him. Repeat BMP because of hyperkalemia.
[2019-06-07 14:12] LABS: BUN/Creatinine Ratio 40; Blood Urea Nitrogen 48 mg/dL (9-20); Hemolysis Index 27
--- NOTE | 2019-06-07 14:12 | Consultation ---
History of Present Illness Consult date: 06/07/19 History of present illness: PULMONARY AND CRITICAL CARE CONSULTATION. DR. TRAN THANK YOU FOR ASKING US TO PARTICIPATE IN THE CARE OF THIS PATIENT. 48-year-old male who is a resident at [facility] with history of debility, right AKA, chronic respiratory failure on home O2, hypertension, CHF, diabetes, CKD, and cerebral palsy who presented to [facility] ED via EMS with complaints of shortness of breath and difficulty breathing. Patient is a poor historian and provides limited history. Patient states that he has been experiencing increased shortness of breath despite using home O2 for the past couple of days. EMS reports patient was hypoxic on 2 L nasal cannula. He was transferred to our facility for further evaluation and treatment. Patient on Venturi mask 50% FiO2 with saturation 92%. Patient reports continued productive cough. BiPAP on standby in the room. patient running a low grade temperature 99.3F. No leukocytosis. CXR reported left lower lobe infiltrate, left lower pleural effusion, and right lower lobe infiltrate. Patient is on Zosyn. Patient is awake and in no acute respiratory distress at this time. Past History Past Medical History: hypertension, renal failure, other (Cerebral palsy, right AKA, chronic respiratory failure on home O2) Past Surgical History: Other (Right AKA, abdominal surgery) Social history: other (Resident of [facility]) Family history: no significant family history Medications and Allergies Allergies Allergy/AdvReac Type Severity Reaction Status Date / Time No Known Allergies Allergy Verified 02/13/18 22:23 Home Medications Medication Instructions Recorded Confirmed Last Taken Type Melatonin [Melatin] 6 mg PO QHS 02/16/18 06/07/19 Unknown History Metoprolol [Lopressor TAB] 50 mg PO BID #60 tab 02/25/18 06/07/19 Unknown Rx Acetaminophen [Acetaminophen TAB] 650 mg PO Q6HR PRN 03/03/18 06/07/19 Unknown History Insulin Detemir (Nf) [Levemir 53 units SUB-Q QHS 03/03/18 06/07/19 Unknown History Flextouch (Nf)] Ipratropium/Albuterol Sulfate 1 ampul IH Q6H PRN 03/03/18 06/07/19 Unknown History [DUONEB *Not for PRN Use*] guaiFENesin/DEXTROMETHORPHAN 15 ml PO Q6H PRN 03/03/18 06/07/19 Unknown History [Robitussin Cough-Chest Dm Liq] Divalproex Sodium [Depakote 125 mg PO QHS 02/18/19 06/07/19 Unknown History Sprinkle] Insulin Regular, Human [Novolin R] 10 units SQ PRN 02/18/19 06/07/19 Unknown History LORazepam [Ativan] 0.5 mg PO BID PRN 02/18/19 06/07/19 Unknown History Insulin Detemir [Levemir VIAL] 53 unit SQ QHS 06/07/19 06/07/19 Unknown History Insulin Regular, Human [Novolin R] 10 unit SQ BID 06/07/19 06/07/19 Unknown History traZODone [Desyrel] 50 mg PO QHS 06/07/19 06/07/19 Unknown History Active Meds: Active Medications Acetaminophen (Tylenol) 650 mg PO Q4H PRN PRN Reason: Pain MILD(1-3)/Fever >100.5/PEREYRA Albuterol (Proventil) 2.5 mg IH Q3HRT PRN PRN Reason: Shortness Of Breath Amlodipine Besylate (Amlodipine) 10 mg PO DAILY [facility] Last Admin: 06/07/19 10:16 Dose: 10 mg Documented by: Aspirin (Halfprin Ec) 81 mg PO DAILY [facility] Last Admin: 06/07/19 10:16 Dose: 81 mg Documented by: Budesonide (Pulmicort) 0.5 mg IH Q12HRT [facility] Last Admin: 06/07/19 08:58 Dose: 0.5 mg Documented by: Buspirone HCl (Buspar) 10 mg PO BID [facility] Last Admin: 06/07/19 12:22 Dose: 10 mg Documented by: Cholecalciferol (Vitamin D3) 5,000 unit PO QDAY [facility] Last Admin: 06/07/19 12:23 Dose: 5,000 unit Documented by: Dextrose (D50w (25gm) Syringe) 50 ml IV Q30MIN PRN; Protocol PRN Reason: Hypoglycemia Furosemide (Lasix) 40 mg IV BID@0600,1800 [facility] Heparin Sodium (Porcine) (Heparin) 5,000 unit SUB-Q Q12HR [facility] Last Admin: 06/07/19 10:14 Dose: 5,000 unit Documented by: Piperacillin Sod/Tazobactam Sod (Zosyn/Ns 3.375gm/50ml) 3.375 gm in 50 mls @ 100 mls/hr IV Q8HR [facility]; Protocol Last Admin: 06/07/19 12:23 Dose: 100 mls/hr Documented by: Insulin Glargine (Lantus) 20 units SUB-Q QHS [facility] Insulin Human Lispro (Humalog) 0 unit SUB-Q ACHS [facility]; Protocol Last Admin: 06/07/19 13:19 Dose: 8 unit Documented by: Lisinopril (Zestril) 40 mg PO QDAY [facility] Last Admin: 06/07/19 10:17 Dose: 40 mg Documented by: Methylprednisolone Sodium Succinate (Solu-Medrol) 80 mg IV Q8HR [facility] Last Admin: 06/07/19 13:18 Dose: 80 mg Documented by: Nitroglycerin (Nitrostat) 0.4 mg SL .Q5MIN PRN PRN Reason: Chest Pain Ondansetron HCl (Zofran) 4 mg IV Q8H PRN PRN Reason: Nausea And Vomiting Sodium Chloride (Sodium Chloride Flush Syringe 10 Ml) 10 ml IV BID [facility] Last Admin: 06/07/19 10:17 Dose: 10 ml Documented by: Sodium Chloride (Sodium Chloride Flush Syringe 10 Ml) 10 ml IV PRN PRN PRN Reason: LINE FLUSH Physical Examination Vital signs: Vital Signs Temp Pulse Resp BP Pulse Ox 97.3 F L 112 H 24 174/88 57 L 06/07/19 02:05 06/07/19 02:05 06/07/19 02:05 06/07/19 02:05 06/07/19 02:05 General appearance: no acute distress, alert Eyes: non-icteric ENT: oropharynx moist Neck: supple, no lymphadenopathy, no JVD Effort: mildly labored Ascultation: Bilateral: diminished breath sounds (Bases), rhonchi Cardiovascular: regular rate and rhythm Gastrointestinal: normoactive bowel sounds Integumentary: normal Extremities: no cyanosis, no edema Musculoskeletal: other (Right AKA ) Gait: other (Rt AKA) non-focal exam, pupils equal and round anxious Results - Laboratory Findings CBC and BMP: 06/07/19 02:45 06/07/19 13:22 ABG POC ABG pH 7.341 (7.35-7.45) L 06/07/19 02:50 POC ABG pO2 90 (80-105) 06/07/19 02:50 POC ABG HCO3 39.1 (22-26 mml/L) 06/07/19 02:50 POC ABG Total CO2 41 (23-27mmol/L) 06/07/19 02:50 POC ABG O2 Sat 96 06/07/19 02:50 PT/INR, D-dimer PT 12.8 Sec. (12.2-14.9) 06/07/19 02:45 INR 0.95 (0.87-1.13) 06/07/19 02:45 Abnormal lab findings: Abnormal Labs 06/07/19 06/07/19 06/07/19 02:45 02:45 02:45 RBC 3.46 L Hgb 10.9 L Hct 32.9 L MCV 95 H Lymph % (Auto) 13.2 L Seg Neutrophils % 75.7 H POC ABG pH Potassium 5.1 H Chloride 94.0 L Carbon Dioxide 33 H BUN 48 H Glucose 195 H POC Glucose Hemoglobin A1c Lactic Acid Magnesium 2.70 H ALT 6 L Troponin T 0.134 H* NT-Pro-B Natriuret Pep 1129 H Albumin 3.6 L Triglycerides 153 H 06/07/19 06/07/19 06/07/19 02:45 02:45 02:50 RBC Hgb Hct MCV Lymph % (Auto) Seg Neutrophils % POC ABG pH 7.341 L Potassium Chloride Carbon Dioxide BUN Glucose POC Glucose Hemoglobin A1c 7.2 H Lactic Acid 2.20 H* Magnesium ALT Troponin T NT-Pro-B Natriuret Pep Albumin Triglycerides 06/07/19 06/07/19 06/07/19 04:31 06:01 06:01 RBC Hgb Hct MCV Lymph % (Auto) Seg Neutrophils % POC ABG pH Potassium Chloride Carbon Dioxide BUN Glucose POC Glucose Hemoglobin A1c Lactic Acid 2.80 H* 3.40 H* Magnesium ALT Troponin T 0.148 H* NT-Pro-B Natriuret Pep Albumin Triglycerides 06/07/19 06/07/19 06/07/19 08:56 09:22 09:50 RBC Hgb Hct MCV Lymph % (Auto) Seg Neutrophils % POC ABG pH Potassium Chloride Carbon Dioxide BUN Glucose POC Glucose 323 H Hemoglobin A1c Lactic Acid 3.30 H* 2.60 H* Magnesium ALT Troponin T NT-Pro-B Natriuret Pep Albumin Triglycerides 06/07/19 12:26 RBC Hgb Hct MCV Lymph % (Auto) Seg Neutrophils % POC ABG pH Potassium Chloride Carbon Dioxide BUN Glucose POC Glucose 366 H Hemoglobin A1c Lactic Acid Magnesium ALT Troponin T NT-Pro-B Natriuret Pep Albumin Triglycerides - Diagnostic Findings Chest x-ray: report reviewed (pERSISTENT AIR SPACE DISEAS LEFT LOWER LOBE. LEFT PLEURAL EFFUSION. RIGHT LOWER LOBE AIR SPACE DISEASE.) Assessment and Plan 48-year-old male who is a resident at [facility] with history of debility, right AKA, chronic respiratory failure on home O2, hypertension, CHF, diabetes, CKD, and cerebral palsy who presented to [facility] ED via EMS with complaints of shortness of breath and difficulty breathing. Patient is a poor historian and provides limited history. Patient states that he has been experiencing increased shortness of breath despite using home O2 for the past couple of days. EMS reports patient was hypoxic on 2 L nasal cannula. He was transferred to our facility for further evaluation and treatment. Patient on Venturi mask 50% FiO2 with saturation 92%. Patient reports continued productive cough. BiPAP on standby in the room. patient running a low grade temperature 99.3F. No leukocytosis. CXR reported left lower lobe infiltrate, left lower pleural effusion, and right lower lobe infiltrate. Patient is on Zosyn. Patient is awake and in no acute respiratory distress at this time. - Patient Problems (1) Acute respiratory failure with hypoxia and hypercapnia Current Visit: Yes Status: Acute Plan to address problem: patient is on Venti Mask fiO2 50% Patient is on Albuterol and atrovent aerosol treatments q6 hrs Continue Solu-medrol Continue Zosyn Continue sub-q heparin Recommend GI prophylaxis (2) Pneumonia Current Visit: Yes Status: Acute Qualifiers: Pneumonia type: due to unspecified organism Laterality: unspecified laterality Lung location: unspecified part of lung Qualified Code(s): J18.9 - Pneumonia, unspecified organism Plan to address problem: Patient is on Zosyn (3) Acute exacerbation of CHF (congestive heart failure) Current Visit: No Status: Acute Qualifiers: Heart failure type: combined systolic and diastolic Qualified Code(s): I50.43 - Acute on chronic combined systolic (congestive) and diastolic (congestive) heart failure Plan to address problem: Managment as per primary and cardiology (4) Cerebral palsy Current Visit: No Status: Acute Plan to address problem: Management as per primary care (5) Morbid obesity with BMI of 45.0-49.9, adult Current Visit: No Status: Acute Plan to address problem: Recommend to lose weight Recommend exercise and diet (6) Obesity hypoventilation syndrome Current Visit: No Status: Acute Plan to address problem: BiPAP during night time and PRN during day time for shortness of breath (7) Sleep apnea in adult Current Visit: No Status: Acute Plan to address problem: BiPAP during night time and PRN during day time for shortness of breath (8) HTN (hypertension) Current Visit: No Status: Chronic Qualifiers: Hypertension type: unspecified Qualified Code(s): I10 - Essential (primary) hypertension Plan to address problem: management as per primary team (9) IDDM (insulin dependent diabetes mellitus) Current Visit: No Status: Chronic Plan to address problem: Management as per primary care team
[2019-06-07] MEDS ORDERED: DEXTROMETHORPHAN PO PRN (16:06)
[2019-06-07] MEDS ORDERED: ACETAMINOPHEN 325 MG TAB PO PRN (16:06)
[2019-06-07] MEDS ORDERED: GUAIFENESIN PO PRN (16:06)
[2019-06-07] MEDS ORDERED: guaiFENesin DM 200/20 MG ORAL LIQD 10 ML PO PRN (16:16)
[2019-06-07] MEDS: SODIUM POLYSTYRENE 15 GM/60 ML ORAL LIQD PO SCH ×2 (16:38→18:59)
[2019-06-07] MEDS: ACETAMINOPHEN 325 MG TAB PO PRN (16:57)
[2019-06-07] MEDS: FUROSEMIDE 40 MG/4 ML INJ IV SCH (17:00)
[2019-06-07] MEDS: LORazepam 0.5 MG TAB PO PRN (17:02)
[2019-06-07 17:51] LABS: Bilirubin,Urine NEG (Negative); Blood,Urine MOD (Negative); Color,Urine Yellow (Yellow); Hyaline Casts,Urine 1 /LPF; Mucus,Urine FEW /HPF; Urobilinogen,Urine < 2.0 mg/dL (<2.0)
[2019-06-07] MEDS ORDERED: SODIUM POLYSTYRENE 15 GM/60 ML ORAL LIQD PO ONE (22:00)
[2019-06-07] MEDS ORDERED: MELATONIN 6 MG PO SCH (22:00)
[2019-06-07] MEDS ORDERED: INSULIN DETEMIR 53 UNIT SQ SCH (22:00)
[2019-06-07] MEDS ORDERED: INSULIN GLARGINE 100 UNITS/ML SUB-Q SCH (22:00)
[2019-06-07] MEDS: DIVALPROEX SPRINKLE 125 MG CAP PO SCH (22:27)
[2019-06-07] MEDS: INSULIN GLARGINE 100 UNITS/ML SUB-Q SCH (22:28)
[2019-06-07] MEDS: traZODone 50 MG TAB PO SCH (22:56)
[2019-06-07] MEDS: METOPROLOL TARTRATE 50 MG TAB PO SCH (22:57)
[2019-06-07] MEDS: MELATONIN 5 MG TAB PO SCH (22:58)
[2019-06-08 04:02] LABS: Hematocrit 29.1 % (35.5-45.6); Hemoglobin 9.8 gm/dl (11.8-15.2); Mean Corpuscular HGB Conc 34 % (32-34); Mean Corpuscular Volume 94 fl (84-94); Platelet Count 287 K/mm3 (140-440); Red Cell Distribution Width 13.7 % (13.2-15.2)
[2019-06-08] MEDS: PIPERACILLIN/TAZOBACTAM 3.375 3.375 GM/50 ML BAG IV SCH ×3 (05:42→21:51)
[2019-06-08] MEDS: methylPREDNISolone Sod Succinate 125 MG/2 ML INJ IV SCH ×3 (05:42→21:49)
[2019-06-08] MEDS: FUROSEMIDE 40 MG/4 ML INJ IV SCH ×2 (05:43→18:34)
[2019-06-08 06:07] LABS: Basophils % (Manual) 0 % (0.0-1.8); Eosinophils % (Manual) 0 % (0.0-4.3); Stomatocytes Few; Total Cells Counted 100
[2019-06-08 06:08] LABS: Platelet Estimate Consistent w Auto
[2019-06-08] MEDS: BUDESONIDE 0.5 MG/2 ML NEBU IH SCH ×2 (09:42→21:29)
[2019-06-08] MEDS: INSULIN LISPRO 100 UNIT/ML SUB-Q SCH ×4 (10:03→21:50)
[2019-06-08] MEDS: busPIRone 10 MG TAB PO SCH ×2 (10:04→21:52)
[2019-06-08] MEDS: METOPROLOL TARTRATE 50 MG TAB PO SCH ×2 (10:04→21:49)
[2019-06-08] MEDS: LISINOPRIL 40 MG TAB PO SCH (10:04)
[2019-06-08] MEDS: CHOLECALCIFEROL (VIT D3) 5,000 UNIT TAB PO SCH (10:05)
[2019-06-08] MEDS: HEPARIN 5,000 UNIT/1 ML VIAL SUB-Q SCH ×2 (10:05→21:49)
[2019-06-08] MEDS: ASPIRIN EC 81 MG TAB PO SCH (10:05)
[2019-06-08] MEDS: amLODIPine 10 MG TAB PO SCH (10:05)
--- NOTE | 2019-06-08 10:28 | Progress Note ---
Assessment and Plan Chronic diastolic heart failure preserve ejection fraction of 50-55% by echo 02/2018 COPD exacerbation Pneumonia Hypoxic respiratory failure Diabetes Mellitus History of right AKA AND/DNR status Cerebral Palsy Sleep apnea Hypertension Conservative cardiac management. Subjective Date of service: 06/08/19 Interval history: Patient is resting in bed comfortably. No distress noted. Objective Vital Signs Temp Pulse Pulse Resp Resp BP Pulse Ox 06/08/19 10:04 92 H 178/74 06/08/19 09:47 92 06/08/19 09:44 79 18 06/08/19 09:36 99.7 F H 81 18 178/74 92 06/08/19 06:14 20 06/08/19 06:10 80 06/08/19 03:43 98.0 F 65 18 174/73 93 06/07/19 22:57 113 H 162/85 06/07/19 22:07 97.5 F L 88 18 193/82 92 06/07/19 21:58 93 06/07/19 21:48 113 H 20 06/07/19 19:22 98.3 F 96 H 20 175/84 93 06/07/19 17:59 109 H 18 150/72 92 06/07/19 16:47 99.3 F 113 H 22 182/85 92 06/07/19 14:46 118 H 06/07/19 13:47 22 06/07/19 12:22 99.1 F 102 H 20 177/81 94 - Physical Examination General: No Apparent Distress HEENT: Positive: PERRL Neck: Positive: trachea midline Cardiac: Positive: Reg Rate and Rhythm Lungs: Positive: Decreased Breath Sounds, Wheezes - Labs and Meds CBC 06/08/19 Range/Units 03:30 WBC 10.0 (4.5-11.0) K/mm3 RBC 3.10 L (3.65-5.03) M/mm3 Hgb 9.8 L (11.8-15.2) gm/dl Hct 29.1 L (35.5-45.6) % Plt Count 287 (140-440) K/mm3 Comprehensive Metabolic Panel 06/07/19 06/08/19 Range/Units 13:22 03:30 Sodium 141 146 H (137-145) mmol/L Potassium 5.1 H 4.6 (3.6-5.0) mmol/L Chloride 95.2 L 96.1 L (98-107) mmol/L Carbon Dioxide 29 38 H D (22-30) mmol/L BUN 48 H 39 H (9-20) mg/dL Creatinine 1.2 1.3 (0.8-1.5) mg/dL Glucose 344 H 294 H (75-100) mg/dL Calcium 9.0 9.0 (8.4-10.2) mg/dL
[2019-06-08] MEDS: LORazepam 0.5 MG TAB PO PRN (11:10)
--- NOTE | 2019-06-08 12:36 | Progress Note ---
Assessment and Plan Patient alert, awake. Resting on 5 litres O2. O2 saturation 92%. Patient says breathing better than yesterday. BIPAP standby in the room. Recommend BIPAP during the night and PRN for shortness of breath during day time. - Patient Problems (1) Acute respiratory failure with hypoxia and hypercapnia Current Visit: Yes Status: Acute Plan to address problem: patient is on O2 5 litres. BIPAP standby in the room. Patient is on Albuterol and atrovent aerosol treatments q6 hrs Continue Solu-medrol Continue Zosyn Continue sub-q heparin Recommend GI prophylaxis (2) Pneumonia Current Visit: Yes Status: Acute Qualifiers: Pneumonia type: due to unspecified organism Laterality: unspecified laterality Lung location: unspecified part of lung Qualified Code(s): J18.9 - Pneumonia, unspecified organism Plan to address problem: Patient is on Zosyn (3) Acute exacerbation of CHF (congestive heart failure) Current Visit: No Status: Acute Qualifiers: Heart failure type: combined systolic and diastolic Qualified Code(s): I50.43 - Acute on chronic combined systolic (congestive) and diastolic (congestive) heart failure Plan to address problem: Managment as per primary and cardiology (4) Cerebral palsy Current Visit: No Status: Acute Plan to address problem: Management as per primary care (5) Morbid obesity with BMI of 45.0-49.9, adult Current Visit: No Status: Acute Plan to address problem: Recommend to lose weight Recommend exercise and diet (6) Obesity hypoventilation syndrome Current Visit: No Status: Acute Plan to address problem: BiPAP during night time and PRN during day time for shortness of breath (7) Sleep apnea in adult Current Visit: No Status: Acute Plan to address problem: BiPAP during night time and PRN during day time for shortness of breath (8) HTN (hypertension) Current Visit: No Status: Chronic Qualifiers: Hypertension type: unspecified Qualified Code(s): I10 - Essential (primary) hypertension Plan to address problem: management as per primary team (9) IDDM (insulin dependent diabetes mellitus) Current Visit: No Status: Chronic Plan to address problem: Management as per primary care team Subjective Date of service: 06/08/19 Interval history: Patient alert, awake. Resting on 5 litres O2. O2 saturation 92%. Patient says breathing better than yesterday. BIPAP standby in the room. Recommend BIPAP during the night and PRN for shortness of breath during day time. Objective Vital Signs - 12hr 06/08/19 06/08/19 06/08/19 03:43 06:10 06:14 Temperature 98.0 F Pulse Rate 65 80 Pulse Rate [ Anterior Throughout] Respiratory 18 20 Rate Respiratory Rate [Anterior Throughout] Blood Pressure 174/73 O2 Sat by Pulse 93 Oximetry 06/08/19 06/08/19 06/08/19 09:36 09:44 09:47 Temperature 99.7 F H Pulse Rate 81 Pulse Rate [ 79 Anterior Throughout] Respiratory 18 Rate Respiratory 18 Rate [Anterior Throughout] Blood Pressure 178/74 O2 Sat by Pulse 92 92 Oximetry 06/08/19 10:04 Temperature Pulse Rate 92 H Pulse Rate [ Anterior Throughout] Respiratory Rate Respiratory Rate [Anterior Throughout] Blood Pressure 178/74 O2 Sat by Pulse Oximetry Constitutional: no acute distress, alert Eyes: non-icteric ENT: oropharynx moist Neck: supple, no lymphadenopathy, no JVD Effort: mildly labored Ascultation: Bilateral: diminished breath sounds (Bases), rhonchi Cardiovascular: regular rate and rhythm Gastrointestinal: normoactive bowel sounds Integumentary: normal Extremities: no cyanosis, no edema Neurologic: non-focal exam, pupils equal and round Psychiatric: anxious CBC and BMP: 06/08/19 03:30 06/08/19 03:30 ABG, PT/INR, D-dimer: ABG POC ABG pH 7.341 (7.35-7.45) L 06/07/19 02:50 POC ABG pO2 90 (80-105) 06/07/19 02:50 POC ABG HCO3 39.1 (22-26 mml/L) 06/07/19 02:50 POC ABG Total CO2 41 (23-27mmol/L) 06/07/19 02:50 POC ABG O2 Sat 96 06/07/19 02:50 PT/INR, D-dimer PT 12.8 Sec. (12.2-14.9) 06/07/19 02:45 INR 0.95 (0.87-1.13) 06/07/19 02:45 Abnormal lab findings: Abnormal Labs 06/07/19 06/07/19 06/07/19 02:45 02:45 02:45 RBC 3.46 L Hgb 10.9 L Hct 32.9 L MCV 95 H Lymph % (Auto) 13.2 L Seg Neutrophils % 75.7 H Seg Neuts % (Manual) Lymphocytes % (Manual) Seg Neutrophils # Man Lymphocytes # (Manual) POC ABG pH Sodium Potassium 5.1 H Chloride 94.0 L Carbon Dioxide 33 H BUN 48 H Glucose 195 H POC Glucose Hemoglobin A1c Lactic Acid Magnesium 2.70 H ALT 6 L Troponin T 0.134 H* NT-Pro-B Natriuret Pep 1129 H Albumin 3.6 L Triglycerides 153 H 06/07/19 06/07/19 06/07/19 02:45 02:45 02:50 RBC Hgb Hct MCV Lymph % (Auto) Seg Neutrophils % Seg Neuts % (Manual) Lymphocytes % (Manual) Seg Neutrophils # Man Lymphocytes # (Manual) POC ABG pH 7.341 L Sodium Potassium Chloride Carbon Dioxide BUN Glucose POC Glucose Hemoglobin A1c 7.2 H Lactic Acid 2.20 H* Magnesium ALT Troponin T NT-Pro-B Natriuret Pep Albumin Triglycerides 06/07/19 06/07/19 06/07/19 04:31 06:01 06:01 RBC Hgb Hct MCV Lymph % (Auto) Seg Neutrophils % Seg Neuts % (Manual) Lymphocytes % (Manual) Seg Neutrophils # Man Lymphocytes # (Manual) POC ABG pH Sodium Potassium Chloride Carbon Dioxide BUN Glucose POC Glucose Hemoglobin A1c Lactic Acid 2.80 H* 3.40 H* Magnesium ALT Troponin T 0.148 H* NT-Pro-B Natriuret Pep Albumin Triglycerides 06/07/19 06/07/19 06/07/19 08:56 09:22 09:50 RBC Hgb Hct MCV Lymph % (Auto) Seg Neutrophils % Seg Neuts % (Manual) Lymphocytes % (Manual) Seg Neutrophils # Man Lymphocytes # (Manual) POC ABG pH Sodium Potassium Chloride Carbon Dioxide BUN Glucose POC Glucose 323 H Hemoglobin A1c Lactic Acid 3.30 H* 2.60 H* Magnesium ALT Troponin T NT-Pro-B Natriuret Pep Albumin Triglycerides 06/07/19 06/07/19 06/07/19 12:26 13:22 17:08 RBC Hgb Hct MCV Lymph % (Auto) Seg Neutrophils % Seg Neuts % (Manual) Lymphocytes % (Manual) Seg Neutrophils # Man Lymphocytes # (Manual) POC ABG pH Sodium Potassium 5.1 H Chloride 95.2 L Carbon Dioxide BUN 48 H Glucose 344 H POC Glucose 366 H 316 H Hemoglobin A1c Lactic Acid Magnesium ALT Troponin T NT-Pro-B Natriuret Pep Albumin Triglycerides 06/07/19 06/08/19 06/08/19 22:06 03:30 03:30 RBC 3.10 L Hgb 9.8 L Hct 29.1 L MCV Lymph % (Auto) Seg Neutrophils % Seg Neuts % (Manual) 87.0 H Lymphocytes % (Manual) 9.0 L Seg Neutrophils # Man 8.7 H Lymphocytes # (Manual) 0.9 L POC ABG pH Sodium 146 H Potassium Chloride 96.1 L Carbon Dioxide 38 H D BUN 39 H Glucose 294 H POC Glucose 331 H Hemoglobin A1c Lactic Acid Magnesium ALT Troponin T NT-Pro-B Natriuret Pep Albumin Triglycerides 06/08/19 06/08/19 08:11 12:23 RBC Hgb Hct MCV Lymph % (Auto) Seg Neutrophils % Seg Neuts % (Manual) Lymphocytes % (Manual) Seg Neutrophils # Man Lymphocytes # (Manual) POC ABG pH Sodium Potassium Chloride Carbon Dioxide BUN Glucose POC Glucose 272 H 314 H Hemoglobin A1c Lactic Acid Magnesium ALT Troponin T NT-Pro-B Natriuret Pep Albumin Triglycerides
--- NOTE | 2019-06-08 14:02 | Progress Note ---
Assessment and Plan Assessment and plan: Acute hypoxic respiratory failure. Etiology is multifactorial. Pulmonary following. Continue O2 to maintain sats greater than 92%. Acute COPD exacerbation. Continue bronchodilators/nebulizers, steroids and IV antibiotics. Obstructive sleep apnea. Bilateral pneumonia with left parapneumonic effusion. Continue IV antibiotics and follow serial chest x-ray. Diabetes mellitus type 2. Continue Accu-Cheks and sliding scale insulin. History of right AKA. Hypertension. Resume antihypertensive medications. History Interval history: No new issues overnight. Hospitalist Physical - Constitutional Vitals: Temp Pulse Resp BP Pulse Ox 99.7 F H 92 H 18 178/74 92 06/08/19 09:36 06/08/19 10:04 06/08/19 09:44 06/08/19 10:04 06/08/19 09:47 General appearance: Present: no acute distress - EENT Eyes: Present: PERRL, EOM intact ENT: hearing intact, clear oral mucosa, dentition normal - Neck Neck: Present: supple, normal ROM - Respiratory Respiratory effort: normal Respiratory: bilateral: CTA - Cardiovascular Rhythm: regular Heart Sounds: Present: S1 & S2. Absent: gallop, rub - Extremities Extremities: no ischemia, No edema, Full ROM - Abdominal General gastrointestinal: soft, non-tender, non-distended, normal bowel sounds - Integumentary Integumentary: Present: clear, warm, dry - Neurologic Neurologic: CNII-XII intact, moves all extremities Results - Labs CBC & Chem 7: 06/08/19 03:30 06/08/19 03:30 Labs: Laboratory Last Values WBC 10.0 K/mm3 (4.5-11.0) 06/08/19 03:30 RBC 3.10 M/mm3 (3.65-5.03) L 06/08/19 03:30 Hgb 9.8 gm/dl (11.8-15.2) L 06/08/19 03:30 Hct 29.1 % (35.5-45.6) L 06/08/19 03:30 MCV 94 fl (84-94) 06/08/19 03:30 MCH 32 pg (28-32) 06/08/19 03:30 MCHC 34 % (32-34) 06/08/19 03:30 RDW 13.7 % (13.2-15.2) 06/08/19 03:30 Plt Count 287 K/mm3 (140-440) 06/08/19 03:30 Lymph % (Auto) 13.2 % (13.4-35.0) L 06/07/19 02:45 [place] % (Auto) 7.2 % (0.0-7.3) 06/07/19 02:45 Eos % (Auto) 3.4 % (0.0-4.3) 06/07/19 02:45 Baso % (Auto) 0.5 % (0.0-1.8) 06/07/19 02:45 Lymph # 1.2 K/mm3 (1.2-5.4) 06/07/19 02:45 [place] # 0.7 K/mm3 (0.0-0.8) 06/07/19 02:45 Eos # 0.3 K/mm3 (0.0-0.4) 06/07/19 02:45 Baso # 0.0 K/mm3 (0.0-0.1) 06/07/19 02:45 Add Manual Diff Complete 06/08/19 03:30 Total Counted 100 06/08/19 03:30 Seg Neutrophils % 75.7 % (40.0-70.0) H 06/07/19 02:45 Seg Neuts % (Manual) 87.0 % (40.0-70.0) H 06/08/19 03:30 Band Neutrophils % 0 % 06/08/19 03:30 Lymphocytes % (Manual) 9.0 % (13.4-35.0) L 06/08/19 03:30 Reactive Lymphs % (Man) 0 % 06/08/19 03:30 Monocytes % (Manual) 4.0 % (0.0-7.3) 06/08/19 03:30 Eosinophils % (Manual) 0 % (0.0-4.3) 06/08/19 03:30 Basophils % (Manual) 0 % (0.0-1.8) 06/08/19 03:30 Metamyelocytes % 0 % 06/08/19 03:30 Myelocytes % 0 % 06/08/19 03:30 Promyelocytes % 0 % 06/08/19 03:30 Blast Cells % 0 % 06/08/19 03:30 Nucleated RBC % Not Reportable 06/08/19 03:30 Seg Neutrophils # 6.9 K/mm3 (1.8-7.7) 06/07/19 02:45 Seg Neutrophils # Man 8.7 K/mm3 (1.8-7.7) H 06/08/19 03:30 Band Neutrophils # 0.0 K/mm3 06/08/19 03:30 Lymphocytes # (Manual) 0.9 K/mm3 (1.2-5.4) L 06/08/19 03:30 Abs React Lymphs (Man) 0.0 K/mm3 06/08/19 03:30 Monocytes # (Manual) 0.4 K/mm3 (0.0-0.8) 06/08/19 03:30 Eosinophils # (Manual) 0.0 K/mm3 (0.0-0.4) 06/08/19 03:30 Basophils # (Manual) 0.0 K/mm3 (0.0-0.1) 06/08/19 03:30 Metamyelocytes # 0.0 K/mm3 06/08/19 03:30 Myelocytes # 0.0 K/mm3 06/08/19 03:30 Promyelocytes # 0.0 K/mm3 06/08/19 03:30 Blast Cells # 0.0 K/mm3 06/08/19 03:30 WBC Morphology Not Reportable 06/08/19 03:30 Hypersegmented Neuts Not Reportable 06/08/19 03:30 Hyposegmented Neuts Not Reportable 06/08/19 03:30 Hypogranular Neuts Not Reportable 06/08/19 03:30 Smudge Cells Not Reportable 06/08/19 03:30 Toxic Granulation Not Reportable 06/08/19 03:30 Toxic Vacuolation Not Reportable 06/08/19 03:30 Dohle Bodies Not Reportable 06/08/19 03:30 Pelger-Huet Anomaly Not Reportable 06/08/19 03:30 Shabbir Rods Not Reportable 06/08/19 03:30 Platelet Estimate Consistent w auto 06/08/19 03:30 Clumped Platelets Not Reportable 06/08/19 03:30 Plt Clumps, EDTA Not Reportable 06/08/19 03:30 Large Platelets Not Reportable 06/08/19 03:30 Giant Platelets Not Reportable 06/08/19 03:30 Platelet Satelliting Not Reportable 06/08/19 03:30 Plt Morphology Comment Not Reportable 06/08/19 03:30 RBC Morphology Not Reportable 06/08/19 03:30 Dimorphic RBCs Not Reportable 06/08/19 03:30 Polychromasia Not Reportable 06/08/19 03:30 Hypochromasia Not Reportable 06/08/19 03:30 Poikilocytosis Not Reportable 06/08/19 03:30 Anisocytosis Not Reportable 06/08/19 03:30 Microcytosis Not Reportable 06/08/19 03:30 Macrocytosis Not Reportable 06/08/19 03:30 Spherocytes Not Reportable 06/08/19 03:30 Pappenheimer Bodies Not Reportable 06/08/19 03:30 Sickle Cells Not Reportable 06/08/19 03:30 Target Cells Not Reportable 06/08/19 03:30 Tear Drop Cells Not Reportable 06/08/19 03:30 Ovalocytes Not Reportable 06/08/19 03:30 Stomatocytes Few 06/08/19 03:30 Helmet Cells Not Reportable 06/08/19 03:30 [place] Bodies Not Reportable 06/08/19 03:30 [place] Rings Not Reportable 06/08/19 03:30 Vidhya Cells Not Reportable 06/08/19 03:30 Bite Cells Not Reportable 06/08/19 03:30 Crenated Cell Not Reportable 06/08/19 03:30 Elliptocytes Not Reportable 06/08/19 03:30 Acanthocytes (Spur) Not Reportable 06/08/19 03:30 Rouleaux Not Reportable 06/08/19 03:30 Hemoglobin C Crystals Not Reportable 06/08/19 03:30 Schistocytes Not Reportable 06/08/19 03:30 Malaria parasites Not Reportable 06/08/19 03:30 Jay Bodies Not Reportable 06/08/19 03:30 Hem Pathologist Commnt No 06/08/19 03:30 PT 12.8 Sec. (12.2-14.9) 06/07/19 02:45 INR 0.95 (0.87-1.13) 06/07/19 02:45 APTT 28.7 Sec. (24.2-36.6) 06/07/19 02:45 POC ABG pH 7.341 (7.35-7.45) L 06/07/19 02:50 POC ABG pO2 90 (80-105) 06/07/19 02:50 POC ABG HCO3 39.1 (22-26 mml/L) 06/07/19 02:50 POC ABG Total CO2 41 (23-27mmol/L) 06/07/19 02:50 POC ABG O2 Sat 96 06/07/19 02:50 POC ABG Base Excess 13 ((-2) - (+3)mmol/L) 06/07/19 02:50 FiO2 60 % 06/07/19 02:50 Sodium 146 mmol/L (137-145) H 06/08/19 03:30 Potassium 4.6 mmol/L (3.6-5.0) 06/08/19 03:30 Chloride 96.1 mmol/L (98-107) L 06/08/19 03:30 Carbon Dioxide 38 mmol/L (22-30) H D 06/08/19 03:30 Anion Gap 17 mmol/L 06/08/19 03:30 BUN 39 mg/dL (9-20) H 06/08/19 03:30 Creatinine 1.3 mg/dL (0.8-1.5) 06/08/19 03:30 Estimated GFR 58 ml/min 06/08/19 03:30 BUN/Creatinine Ratio 30 % 06/08/19 03:30 Glucose 294 mg/dL (75-100) H 06/08/19 03:30 POC Glucose 314 (70-105) H 06/08/19 12:23 Hemoglobin A1c 7.2 % (4-6) H 06/07/19 02:45 Lactic Acid 1.20 mmol/L (0.7-2.0) 06/07/19 13:22 Calcium 9.0 mg/dL (8.4-10.2) 06/08/19 03:30 Magnesium 2.70 mg/dL (1.7-2.3) H 06/07/19 02:45 Total Bilirubin 0.20 mg/dL (0.1-1.2) 06/07/19 02:45 AST 11 units/L (5-40) 06/07/19 02:45 ALT 6 units/L (7-56) L 06/07/19 02:45 Alkaline Phosphatase 63 units/L (35-129) 06/07/19 02:45 Total Creatine Kinase 121 units/L (55-170) 06/07/19 06:01 CK-MB (CK-2) 3.0 ng/mL (0.0-4.0) 06/07/19 06:01 CK-MB (CK-2) Rel Index 2.4 (0-4) 06/07/19 06:01 Troponin T 0.148 ng/mL (0.00-0.029) H* 06/07/19 06:01 NT-Pro-B Natriuret Pep 1129 pg/mL (0-900) H 06/07/19 02:45 Total Protein 7.5 g/dL (6.3-8.2) 06/07/19 02:45 Albumin 3.6 g/dL (3.9-5) L 06/07/19 02:45 Albumin/Globulin Ratio 0.9 % 06/07/19 02:45 Triglycerides 153 mg/dL (2-149) H 06/07/19 02:45 Cholesterol 183 mg/dL (50-199) 06/07/19 02:45 LDL Cholesterol Direct 109 mg/dL (50-130) 06/07/19 02:45 HDL Cholesterol 40 mg/dL (40-59) 06/07/19 02:45 Cholesterol/HDL Ratio 4.57 % 06/07/19 02:45 Urine Color Yellow (Yellow) 06/07/19 17:30 Urine Turbidity Clear (Clear) 06/07/19 17:30 Urine pH 5.0 (5.0-7.0) 06/07/19 17:30 Ur Specific [place] 1.012 (1.003-1.030) 06/07/19 17:30 Urine Protein 100 mg/dl mg/dL (Negative) 06/07/19 17:30 Urine Glucose (UA) >=500 mg/dL (Negative) 06/07/19 17:30 Urine Ketones Tr mg/dL (Negative) 06/07/19 17:30 Urine Blood Mod (Negative) 06/07/19 17:30 Urine Nitrite Neg (Negative) 06/07/19 17:30 Urine Bilirubin Neg (Negative) 06/07/19 17:30 Urine Urobilinogen < 2.0 mg/dL (<2.0) 06/07/19 17:30 Ur Leukocyte Esterase Neg (Negative) 06/07/19 17:30 Urine WBC (Auto) 1.0 /HPF (0.0-6.0) 06/07/19 17:30 Urine RBC (Auto) 3.0 /HPF (0.0-6.0) 06/07/19 17:30 Hyaline Casts 1 /LPF 06/07/19 17:30 Urine Mucus Few /HPF 06/07/19 17:30 Active Medications - Current Medications Current Medications: Generic Name Dose Route Start Last Admin Trade Name Freq PRN Reason Stop Dose Admin Acetaminophen 650 mg 06/07/19 05:09 06/07/19 16:57 Tylenol PO 650 mg Q4H PRN Administration Pain MILD(1-3)/Fever >100.5/PEREYRA Albuterol 2.5 mg 06/07/19 05:09 Proventil IH Q3HRT PRN Shortness Of Breath Amlodipine Besylate 10 mg 06/07/19 10:00 06/08/19 10:05 Amlodipine PO 10 mg DAILY SHAE Administration Aspirin 81 mg 06/07/19 10:00 06/08/19 10:05 Halfprin Ec PO 81 mg DAILY SHAE Administration Budesonide 0.5 mg 06/07/19 08:00 06/08/19 09:42 Pulmicort IH 0.5 mg Q12HRT SHAE Administration Buspirone HCl 10 mg 06/07/19 10:00 06/08/19 10:04 Buspar PO 10 mg BID SHAE Administration Cholecalciferol 5,000 unit 06/07/19 10:00 06/08/19 10:05 Vitamin D3 PO 5,000 unit QDAY SHAE Administration Dextrose 50 ml 06/07/19 05:09 D50w (25gm) Syringe IV Q30MIN PRN Hypoglycemia Protocol Divalproex Sodium 125 mg 06/07/19 22:00 06/07/19 22:27 Depakote Sprinkle PO 125 mg QHS SHAE Administration Furosemide 40 mg 06/07/19 18:00 06/08/19 05:43 Lasix IV 40 mg BID@0600,1800 SHAE Administration Guaifenesin 15 ml 06/07/19 16:16 Guaifenesin Dm Syrup PO Q6H PRN Cough Heparin Sodium (Porcine) 5,000 unit 06/07/19 10:00 06/08/19 10:05 Heparin SUB-Q 5,000 unit Q12HR SHAE Administration Piperacillin Sod/Tazobactam Sod 3.375 gm in 50 mls @ 100 mls/hr 06/07/19 12:00 06/08/19 13:56 Zosyn/Ns 3.375gm/50ml IV 06/11/19 11:59 100 mls/hr Q8HR SHAE Administration Protocol Insulin Glargine 53 units 06/07/19 22:00 06/07/19 22:28 Lantus SUB-Q 53 units QHS SHAE Administration Insulin Human Lispro 0 unit 06/07/19 07:30 06/08/19 13:40 Humalog SUB-Q 4 unit ACHS SHAE Administration Protocol Lisinopril 40 mg 06/07/19 10:00 06/08/19 10:04 Zestril PO 40 mg QDAY SHAE Administration Lorazepam 0.5 mg 06/07/19 16:06 06/08/19 11:10 Ativan PO 0.5 mg BID PRN Administration Agitation Melatonin 5 mg 06/07/19 22:00 06/07/19 22:58 Melatonin PO 5 mg QHS SHAE Administration Methylprednisolone Sodium Succinate 80 mg 06/07/19 14:00 06/08/19 13:55 Solu-Medrol IV 80 mg Q8HR SHAE Administration Metoprolol Tartrate 50 mg 06/07/19 22:00 06/08/19 10:04 Metoprolol PO 50 mg BID SHAE Administration Nitroglycerin 0.4 mg 06/07/19 05:09 Nitrostat SL .Q5MIN PRN Chest Pain Ondansetron HCl 4 mg 06/07/19 05:09 Zofran IV Q8H PRN Nausea And Vomiting Sodium Chloride 10 ml 06/07/19 10:00 06/08/19 10:05 Sodium Chloride Flush Syringe 10 Ml IV 10 ml BID SHAE Administration Sodium Chloride 10 ml 06/07/19 05:09 Sodium Chloride Flush Syringe 10 Ml IV PRN PRN LINE FLUSH Trazodone HCl 50 mg 06/07/19 22:00 06/07/19 22:56 Desyrel PO 50 mg QHS SHAE Administration
[2019-06-08] MEDS: traZODone 50 MG TAB PO SCH (21:49)
[2019-06-08] MEDS: MELATONIN 5 MG TAB PO SCH (21:50)
[2019-06-08] MEDS: INSULIN GLARGINE 100 UNITS/ML SUB-Q SCH (21:50)
[2019-06-08] MEDS: DIVALPROEX SPRINKLE 125 MG CAP PO SCH (21:51)
--- NOTE | 2019-06-08 23:56 | Progress Note ---
Assessment and Plan Chronic diastolic heart failure preserve ejection fraction of 50-55% by echo 02/2018 COPD exacerbation Pneumonia Hypoxic respiratory failure Diabetes Mellitus History of right AKA AND/DNR status Cerebral Palsy Sleep apnea Hypertension Conservative cardiac management. Subjective Date of service: 06/08/19 Interval history: No acute events. Resting comfortably. No chest pain or SOB. Objective Vital Signs Temp Pulse Pulse Resp Resp BP BP 06/08/19 23:45 98.2 F 77 19 177/76 06/08/19 23:26 98.1 F 53 L 19 180/77 06/08/19 21:49 82 176/85 06/08/19 21:32 06/08/19 21:30 87 20 06/08/19 19:51 98.2 F 88 18 176/85 06/08/19 18:05 97.5 F L 71 18 190/63 06/08/19 14:00 66 06/08/19 10:04 92 H 178/74 06/08/19 09:47 06/08/19 09:44 79 18 06/08/19 09:36 99.7 F H 81 18 178/74 06/08/19 06:14 20 06/08/19 06:10 80 06/08/19 03:43 98.0 F 65 18 174/73 Pulse Ox 06/08/19 23:45 96 06/08/19 23:26 99 06/08/19 21:49 06/08/19 21:32 92 06/08/19 21:30 06/08/19 19:51 94 06/08/19 18:05 91 06/08/19 14:00 06/08/19 10:04 06/08/19 09:47 92 06/08/19 09:44 06/08/19 09:36 92 06/08/19 06:14 06/08/19 06:10 06/08/19 03:43 93 - Physical Examination General: No Apparent Distress HEENT: Positive: PERRL Neck: Positive: trachea midline - Labs and Meds CBC 06/08/19 Range/Units 03:30 WBC 10.0 (4.5-11.0) K/mm3 RBC 3.10 L (3.65-5.03) M/mm3 Hgb 9.8 L (11.8-15.2) gm/dl Hct 29.1 L (35.5-45.6) % Plt Count 287 (140-440) K/mm3 Comprehensive Metabolic Panel 06/08/19 Range/Units 03:30 Sodium 146 H (137-145) mmol/L Potassium 4.6 (3.6-5.0) mmol/L Chloride 96.1 L (98-107) mmol/L Carbon Dioxide 38 H D (22-30) mmol/L BUN 39 H (9-20) mg/dL Creatinine 1.3 (0.8-1.5) mg/dL Glucose 294 H (75-100) mg/dL Calcium 9.0 (8.4-10.2) mg/dL
[2019-06-09] MEDS: FUROSEMIDE 40 MG/4 ML INJ IV SCH ×2 (05:33→17:55)
[2019-06-09] MEDS: PIPERACILLIN/TAZOBACTAM 3.375 3.375 GM/50 ML BAG IV SCH ×3 (05:33→21:56)
[2019-06-09] MEDS: methylPREDNISolone Sod Succinate 125 MG/2 ML INJ IV SCH ×3 (05:33→21:54)
[2019-06-09 06:34] LABS: Hematocrit 32.2 % (35.5-45.6); Hemoglobin 10.7 gm/dl (11.8-15.2); Mean Corpuscular HGB Conc 33 % (32-34); Mean Corpuscular Volume 94 fl (84-94); Platelet Count 319 K/mm3 (140-440); Red Blood Count 3.42 M/mm3 (3.65-5.03); Red Cell Distribution Width 13.6 % (13.2-15.2)
[2019-06-09 06:53] LABS: BUN/Creatinine Ratio 36; Blood Urea Nitrogen 40 mg/dL (9-20); Calcium 8.3 mg/dL (8.4-10.2); Hemolysis Index 0
[2019-06-09] MEDS: BUDESONIDE 0.5 MG/2 ML NEBU IH SCH ×2 (07:18→21:00)
[2019-06-09] MEDS: INSULIN LISPRO 100 UNIT/ML SUB-Q SCH ×4 (08:50→21:57)
[2019-06-09] MEDS: amLODIPine 10 MG TAB PO SCH (09:11)
[2019-06-09] MEDS: ASPIRIN EC 81 MG TAB PO SCH (09:12)
[2019-06-09] MEDS: LISINOPRIL 40 MG TAB PO SCH (09:12)
[2019-06-09] MEDS: busPIRone 10 MG TAB PO SCH ×2 (09:12→21:56)
[2019-06-09] MEDS: METOPROLOL TARTRATE 50 MG TAB PO SCH ×2 (09:12→21:55)
[2019-06-09] MEDS: HEPARIN 5,000 UNIT/1 ML VIAL SUB-Q SCH ×2 (09:13→21:54)
[2019-06-09] MEDS: CHOLECALCIFEROL (VIT D3) 5,000 UNIT TAB PO SCH (09:13)
[2019-06-09] MEDS: LORazepam 0.5 MG TAB PO PRN (09:14)
[2019-06-09 11:11] LABS: Myelocytes # (Manual) 0.3 K/mm3; Total Cells Counted 100
[2019-06-09 11:15] LABS: Basophils % (Manual) 0 % (0.0-1.8); Eosinophils % (Manual) 0 % (0.0-4.3); Macrocytosis Few; Platelet Estimate Consistent w Auto; Stomatocytes Few
--- NOTE | 2019-06-09 11:22 | Progress Note ---
Assessment and Plan Assessment and plan: Acute hypoxic respiratory failure. Etiology is multifactorial. Pulmonary following. Continue O2 to maintain sats greater than 92%. Acute COPD exacerbation. Continue bronchodilators/nebulizers, steroids and IV antibiotics. Obstructive sleep apnea. Bilateral pneumonia with left parapneumonic effusion. Continue IV antibiotics and follow serial chest x-ray. Cerebral palsy. Given the patient's long history of cerebral palsy and admission of pneumonia, we will obtain speech evaluation to rule out silent aspiration. Diabetes mellitus type 2. Continue Accu-Cheks and sliding scale insulin. History of right AKA. Hypertension. Resume antihypertensive medications. History Interval history: No new issues overnight. Hospitalist Physical - Constitutional Vitals: Temp Pulse Resp BP Pulse Ox 97.5 F L 64 20 172/61 90 06/09/19 07:37 06/09/19 09:12 06/09/19 08:13 06/09/19 09:12 06/09/19 07:37 General appearance: Present: no acute distress - EENT Eyes: Present: PERRL, EOM intact ENT: hearing intact, clear oral mucosa, dentition normal - Neck Neck: Present: supple, normal ROM - Respiratory Respiratory effort: normal Respiratory: bilateral: CTA - Cardiovascular Rhythm: regular Heart Sounds: Present: S1 & S2. Absent: gallop, rub - Extremities Extremities: no ischemia, No edema, Full ROM - Abdominal General gastrointestinal: soft, non-tender, non-distended, normal bowel sounds - Integumentary Integumentary: Present: clear, warm, dry - Neurologic Neurologic: CNII-XII intact, moves all extremities Results - Labs CBC & Chem 7: 06/09/19 05:57 06/09/19 05:57 Labs: Laboratory Last Values WBC 11.6 K/mm3 (4.5-11.0) H 06/09/19 05:57 RBC 3.42 M/mm3 (3.65-5.03) L 06/09/19 05:57 Hgb 10.7 gm/dl (11.8-15.2) L 06/09/19 05:57 Hct 32.2 % (35.5-45.6) L 06/09/19 05:57 MCV 94 fl (84-94) 06/09/19 05:57 MCH 31 pg (28-32) 06/09/19 05:57 MCHC 33 % (32-34) 06/09/19 05:57 RDW 13.6 % (13.2-15.2) 06/09/19 05:57 Plt Count 319 K/mm3 (140-440) 06/09/19 05:57 Lymph % (Auto) 13.2 % (13.4-35.0) L 06/07/19 02:45 [place] % (Auto) 7.2 % (0.0-7.3) 06/07/19 02:45 Eos % (Auto) 3.4 % (0.0-4.3) 06/07/19 02:45 Baso % (Auto) 0.5 % (0.0-1.8) 06/07/19 02:45 Lymph # 1.2 K/mm3 (1.2-5.4) 06/07/19 02:45 [place] # 0.7 K/mm3 (0.0-0.8) 06/07/19 02:45 Eos # 0.3 K/mm3 (0.0-0.4) 06/07/19 02:45 Baso # 0.0 K/mm3 (0.0-0.1) 06/07/19 02:45 Add Manual Diff Complete 06/09/19 05:57 Total Counted 100 06/09/19 05:57 Seg Neutrophils % 75.7 % (40.0-70.0) H 06/07/19 02:45 Seg Neuts % (Manual) 87.0 % (40.0-70.0) H 06/09/19 05:57 Band Neutrophils % 0 % 06/09/19 05:57 Lymphocytes % (Manual) 8.0 % (13.4-35.0) L 06/09/19 05:57 Reactive Lymphs % (Man) 0 % 06/09/19 05:57 Monocytes % (Manual) 2.0 % (0.0-7.3) 06/09/19 05:57 Eosinophils % (Manual) 0 % (0.0-4.3) 06/09/19 05:57 Basophils % (Manual) 0 % (0.0-1.8) 06/09/19 05:57 Metamyelocytes % 0 % 06/09/19 05:57 Myelocytes % 3.0 % 06/09/19 05:57 Promyelocytes % 0 % 06/09/19 05:57 Blast Cells % 0 % 06/09/19 05:57 Nucleated RBC % Not Reportable 06/09/19 05:57 Seg Neutrophils # 6.9 K/mm3 (1.8-7.7) 06/07/19 02:45 Seg Neutrophils # Man 10.1 K/mm3 (1.8-7.7) H 06/09/19 05:57 Band Neutrophils # 0.0 K/mm3 06/09/19 05:57 Lymphocytes # (Manual) 0.9 K/mm3 (1.2-5.4) L 06/09/19 05:57 Abs React Lymphs (Man) 0.0 K/mm3 06/09/19 05:57 Monocytes # (Manual) 0.2 K/mm3 (0.0-0.8) 06/09/19 05:57 Eosinophils # (Manual) 0.0 K/mm3 (0.0-0.4) 06/09/19 05:57 Basophils # (Manual) 0.0 K/mm3 (0.0-0.1) 06/09/19 05:57 Metamyelocytes # 0.0 K/mm3 06/09/19 05:57 Myelocytes # 0.3 K/mm3 06/09/19 05:57 Promyelocytes # 0.0 K/mm3 06/09/19 05:57 Blast Cells # 0.0 K/mm3 06/09/19 05:57 WBC Morphology Not Reportable 06/09/19 05:57 Hypersegmented Neuts Not Reportable 06/09/19 05:57 Hyposegmented Neuts Not Reportable 06/09/19 05:57 Hypogranular Neuts Not Reportable 06/09/19 05:57 Smudge Cells Not Reportable 06/09/19 05:57 Toxic Granulation Not Reportable 06/09/19 05:57 Toxic Vacuolation Not Reportable 06/09/19 05:57 Dohle Bodies Not Reportable 06/09/19 05:57 Pelger-Huet Anomaly Not Reportable 06/09/19 05:57 Shabbir Rods Not Reportable 06/09/19 05:57 Platelet Estimate Consistent w auto 06/09/19 05:57 Clumped Platelets Not Reportable 06/09/19 05:57 Plt Clumps, EDTA Not Reportable 06/09/19 05:57 Large Platelets Not Reportable 06/09/19 05:57 Giant Platelets Not Reportable 06/09/19 05:57 Platelet Satelliting Not Reportable 06/09/19 05:57 Plt Morphology Comment Not Reportable 06/09/19 05:57 RBC Morphology Not Reportable 06/09/19 05:57 Dimorphic RBCs Not Reportable 06/09/19 05:57 Polychromasia Rare 06/09/19 05:57 Hypochromasia Not Reportable 06/09/19 05:57 Poikilocytosis Not Reportable 06/09/19 05:57 Anisocytosis Not Reportable 06/09/19 05:57 Microcytosis Not Reportable 06/09/19 05:57 Macrocytosis Few 06/09/19 05:57 Spherocytes Not Reportable 06/09/19 05:57 Pappenheimer Bodies Not Reportable 06/09/19 05:57 Sickle Cells Not Reportable 06/09/19 05:57 Target Cells Not Reportable 06/09/19 05:57 Tear Drop Cells Not Reportable 06/09/19 05:57 Ovalocytes Not Reportable 06/09/19 05:57 Stomatocytes Few 06/09/19 05:57 Helmet Cells Not Reportable 06/09/19 05:57 [place] Bodies Not Reportable 06/09/19 05:57 [place] Rings Not Reportable 06/09/19 05:57 Vidhya Cells Not Reportable 06/09/19 05:57 Bite Cells Not Reportable 06/09/19 05:57 Crenated Cell Not Reportable 06/09/19 05:57 Elliptocytes Not Reportable 06/09/19 05:57 Acanthocytes (Spur) Not Reportable 06/09/19 05:57 Rouleaux Not Reportable 06/09/19 05:57 Hemoglobin C Crystals Not Reportable 06/09/19 05:57 Schistocytes Not Reportable 06/09/19 05:57 Malaria parasites Not Reportable 06/09/19 05:57 Jay Bodies Not Reportable 06/09/19 05:57 Hem Pathologist Commnt No 06/09/19 05:57 PT 12.8 Sec. (12.2-14.9) 06/07/19 02:45 INR 0.95 (0.87-1.13) 06/07/19 02:45 APTT 28.7 Sec. (24.2-36.6) 06/07/19 02:45 POC ABG pH 7.341 (7.35-7.45) L 06/07/19 02:50 POC ABG pO2 90 (80-105) 06/07/19 02:50 POC ABG HCO3 39.1 (22-26 mml/L) 06/07/19 02:50 POC ABG Total CO2 41 (23-27mmol/L) 06/07/19 02:50 POC ABG O2 Sat 96 06/07/19 02:50 POC ABG Base Excess 13 ((-2) - (+3)mmol/L) 06/07/19 02:50 FiO2 60 % 06/07/19 02:50 Sodium 143 mmol/L (137-145) 06/09/19 05:57 Potassium 3.3 mmol/L (3.6-5.0) L D 06/09/19 05:57 Chloride 90.4 mmol/L (98-107) L 06/09/19 05:57 Carbon Dioxide 38 mmol/L (22-30) H 06/09/19 05:57 Anion Gap 18 mmol/L 06/09/19 05:57 BUN 40 mg/dL (9-20) H 06/09/19 05:57 Creatinine 1.1 mg/dL (0.8-1.5) 06/09/19 05:57 Estimated GFR > 60 ml/min 06/09/19 05:57 BUN/Creatinine Ratio 36 % 06/09/19 05:57 Glucose 281 mg/dL (75-100) H 06/09/19 05:57 POC Glucose 262 (70-105) H 06/09/19 08:47 Hemoglobin A1c 7.2 % (4-6) H 06/07/19 02:45 Lactic Acid 1.20 mmol/L (0.7-2.0) 06/07/19 13:22 Calcium 8.3 mg/dL (8.4-10.2) L 06/09/19 05:57 Magnesium 2.70 mg/dL (1.7-2.3) H 06/07/19 02:45 Total Bilirubin 0.20 mg/dL (0.1-1.2) 06/07/19 02:45 AST 11 units/L (5-40) 06/07/19 02:45 ALT 6 units/L (7-56) L 06/07/19 02:45 Alkaline Phosphatase 63 units/L (35-129) 06/07/19 02:45 Total Creatine Kinase 121 units/L (55-170) 06/07/19 06:01 CK-MB (CK-2) 3.0 ng/mL (0.0-4.0) 06/07/19 06:01 CK-MB (CK-2) Rel Index 2.4 (0-4) 06/07/19 06:01 Troponin T 0.148 ng/mL (0.00-0.029) H* 06/07/19 06:01 NT-Pro-B Natriuret Pep 1129 pg/mL (0-900) H 06/07/19 02:45 Total Protein 7.5 g/dL (6.3-8.2) 06/07/19 02:45 Albumin 3.6 g/dL (3.9-5) L 06/07/19 02:45 Albumin/Globulin Ratio 0.9 % 06/07/19 02:45 Triglycerides 153 mg/dL (2-149) H 06/07/19 02:45 Cholesterol 183 mg/dL (50-199) 06/07/19 02:45 LDL Cholesterol Direct 109 mg/dL (50-130) 06/07/19 02:45 HDL Cholesterol 40 mg/dL (40-59) 06/07/19 02:45 Cholesterol/HDL Ratio 4.57 % 06/07/19 02:45 Urine Color Yellow (Yellow) 06/07/19 17:30 Urine Turbidity Clear (Clear) 06/07/19 17:30 Urine pH 5.0 (5.0-7.0) 06/07/19 17:30 Ur Specific [place] 1.012 (1.003-1.030) 06/07/19 17:30 Urine Protein 100 mg/dl mg/dL (Negative) 06/07/19 17:30 Urine Glucose (UA) >=500 mg/dL (Negative) 06/07/19 17:30 Urine Ketones Tr mg/dL (Negative) 06/07/19 17:30 Urine Blood Mod (Negative) 06/07/19 17:30 Urine Nitrite Neg (Negative) 06/07/19 17:30 Urine Bilirubin Neg (Negative) 06/07/19 17:30 Urine Urobilinogen < 2.0 mg/dL (<2.0) 06/07/19 17:30 Ur Leukocyte Esterase Neg (Negative) 06/07/19 17:30 Urine WBC (Auto) 1.0 /HPF (0.0-6.0) 06/07/19 17:30 Urine RBC (Auto) 3.0 /HPF (0.0-6.0) 06/07/19 17:30 Hyaline Casts 1 /LPF 06/07/19 17:30 Urine Mucus Few /HPF 06/07/19 17:30 Active Medications - Current Medications Current Medications: Generic Name Dose Route Start Last Admin Trade Name Freq PRN Reason Stop Dose Admin Acetaminophen 650 mg 06/07/19 05:09 06/07/19 16:57 Tylenol PO 650 mg Q4H PRN Administration Pain MILD(1-3)/Fever >100.5/PEREYRA Albuterol 2.5 mg 06/07/19 05:09 Proventil IH Q3HRT PRN Shortness Of Breath Amlodipine Besylate 10 mg 06/07/19 10:00 06/09/19 09:11 Amlodipine PO 10 mg DAILY SHAE Administration Aspirin 81 mg 06/07/19 10:00 06/09/19 09:12 Halfprin Ec PO 81 mg DAILY SHAE Administration Budesonide 0.5 mg 06/07/19 08:00 06/09/19 07:18 Pulmicort IH 0.5 mg Q12HRT SHAE Administration Buspirone HCl 10 mg 06/07/19 10:00 06/09/19 09:12 Buspar PO 10 mg BID SHAE Administration Cholecalciferol 5,000 unit 06/07/19 10:00 06/09/19 09:13 Vitamin D3 PO 5,000 unit QDAY SHAE Administration Dextrose 50 ml 06/07/19 05:09 D50w (25gm) Syringe IV Q30MIN PRN Hypoglycemia Protocol Divalproex Sodium 125 mg 06/07/19 22:00 06/08/19 21:51 Depakote Sprinkle PO 125 mg QHS SHAE Administration Furosemide 40 mg 06/07/19 18:00 06/09/19 05:33 Lasix IV 40 mg BID@0600,1800 SHAE Administration Guaifenesin 15 ml 06/07/19 16:16 Guaifenesin Dm Syrup PO Q6H PRN Cough Heparin Sodium (Porcine) 5,000 unit 06/07/19 10:00 06/09/19 09:13 Heparin SUB-Q 5,000 unit Q12HR SHAE Administration Piperacillin Sod/Tazobactam Sod 3.375 gm in 50 mls @ 100 mls/hr 06/07/19 12:00 06/09/19 05:33 Zosyn/Ns 3.375gm/50ml IV 06/11/19 11:59 100 mls/hr Q8HR SHAE Administration Protocol Insulin Glargine 53 units 06/07/19 22:00 06/08/19 21:50 Lantus SUB-Q 53 units QHS SHAE Administration Insulin Human Lispro 0 unit 06/07/19 07:30 06/09/19 08:50 Humalog SUB-Q 4 unit ACHS SHAE Administration Protocol Lisinopril 40 mg 06/07/19 10:00 06/09/19 09:12 Zestril PO 40 mg QDAY SHAE Administration Lorazepam 0.5 mg 06/07/19 16:06 06/09/19 09:14 Ativan PO 0.5 mg BID PRN Administration Agitation Melatonin 5 mg 06/07/19 22:00 06/08/19 21:50 Melatonin PO 5 mg QHS SHAE Administration Methylprednisolone Sodium Succinate 80 mg 06/07/19 14:00 06/09/19 05:33 Solu-Medrol IV 80 mg Q8HR SHAE Administration Metoprolol Tartrate 50 mg 06/07/19 22:00 06/09/19 09:12 Metoprolol PO 50 mg BID SHAE Administration Nitroglycerin 0.4 mg 06/07/19 05:09 Nitrostat SL .Q5MIN PRN Chest Pain Ondansetron HCl 4 mg 06/07/19 05:09 Zofran IV Q8H PRN Nausea And Vomiting Sodium Chloride 10 ml 06/07/19 10:00 06/09/19 09:13 Sodium Chloride Flush Syringe 10 Ml IV 10 ml BID SHAE Administration Sodium Chloride 10 ml 06/07/19 05:09 Sodium Chloride Flush Syringe 10 Ml IV PRN PRN LINE FLUSH Trazodone HCl 50 mg 06/07/19 22:00 06/08/19 21:49 Desyrel PO 50 mg QHS SHAE Administration
--- NOTE | 2019-06-09 11:22 | Progress Note ---
Assessment and Plan Patient alert, awake. Resting on 5 litres O2. O2 saturation 90%. Patient says breathing better . BIPAP standby in the room. Recommend BIPAP during the night and PRN for shortness of breath during day time. - Patient Problems (1) Acute respiratory failure with hypoxia and hypercapnia Current Visit: Yes Status: Acute Plan to address problem: patient is on O2 5 litres. BIPAP standby in the room. Patient is on Albuterol and atrovent aerosol treatments q6 hrs Continue Solu-medrol Continue Zosyn Continue sub-q heparin Recommend GI prophylaxis (2) Pneumonia Current Visit: Yes Status: Acute Qualifiers: Pneumonia type: due to unspecified organism Laterality: unspecified laterality Lung location: unspecified part of lung Qualified Code(s): J18.9 - Pneumonia, unspecified organism Plan to address problem: Patient is on Zosyn (3) Acute exacerbation of CHF (congestive heart failure) Current Visit: No Status: Acute Qualifiers: Heart failure type: combined systolic and diastolic Qualified Code(s): I50.43 - Acute on chronic combined systolic (congestive) and diastolic (congestive) heart failure Plan to address problem: Managment as per primary and cardiology (4) Cerebral palsy Current Visit: No Status: Acute Plan to address problem: Management as per primary care (5) Morbid obesity with BMI of 45.0-49.9, adult Current Visit: No Status: Acute Plan to address problem: Recommend to lose weight Recommend exercise and diet (6) Obesity hypoventilation syndrome Current Visit: No Status: Acute Plan to address problem: BiPAP during night time and PRN during day time for shortness of breath (7) Sleep apnea in adult Current Visit: No Status: Acute Plan to address problem: BiPAP during night time and PRN during day time for shortness of breath (8) HTN (hypertension) Current Visit: No Status: Chronic Qualifiers: Hypertension type: unspecified Qualified Code(s): I10 - Essential (primary) hypertension Plan to address problem: management as per primary team (9) IDDM (insulin dependent diabetes mellitus) Current Visit: No Status: Chronic Plan to address problem: Management as per primary care team Subjective Date of service: 06/09/19 Interval history: Patient alert, awake. Resting on 5 litres O2. O2 saturation 90%. Patient says breathing better .. BIPAP standby in the room. Recommend BIPAP during the night and PRN for shortness of breath during day time. Objective Vital Signs - 12hr 06/08/19 06/08/19 06/09/19 23:26 23:45 01:57 Temperature 98.1 F 98.2 F Pulse Rate 53 L 77 Pulse Rate [ Anterior Throughout] Respiratory 19 19 20 Rate Respiratory Rate [Anterior Throughout] Blood Pressure 180/77 Blood Pressure 177/76 [Left] O2 Sat by Pulse 99 96 Oximetry 06/09/19 06/09/19 06/09/19 04:45 06:00 07:20 Temperature 98.3 F Pulse Rate 69 59 L Pulse Rate [ 87 Anterior Throughout] Respiratory 18 Rate Respiratory 20 Rate [Anterior Throughout] Blood Pressure 180/84 Blood Pressure [Left] O2 Sat by Pulse 95 Oximetry 06/09/19 06/09/19 06/09/19 07:21 07:37 08:13 Temperature 97.5 F L Pulse Rate 64 Pulse Rate [ Anterior Throughout] Respiratory 18 20 Rate Respiratory Rate [Anterior Throughout] Blood Pressure 172/61 Blood Pressure [Left] O2 Sat by Pulse 95 90 Oximetry 06/09/19 06/09/19 09:11 09:12 Temperature Pulse Rate 64 64 Pulse Rate [ Anterior Throughout] Respiratory Rate Respiratory Rate [Anterior Throughout] Blood Pressure 172/61 172/61 Blood Pressure [Left] O2 Sat by Pulse Oximetry Constitutional: no acute distress, alert Eyes: non-icteric ENT: oropharynx moist Neck: supple, no lymphadenopathy, no JVD Effort: mildly labored Ascultation: Bilateral: diminished breath sounds (Bases), rhonchi Cardiovascular: regular rate and rhythm Gastrointestinal: normoactive bowel sounds Integumentary: normal Extremities: no cyanosis, no edema Neurologic: non-focal exam, pupils equal and round Psychiatric: anxious CBC and BMP: 06/09/19 05:57 06/09/19 05:57 ABG, PT/INR, D-dimer: ABG POC ABG pH 7.341 (7.35-7.45) L 06/07/19 02:50 POC ABG pO2 90 (80-105) 06/07/19 02:50 POC ABG HCO3 39.1 (22-26 mml/L) 06/07/19 02:50 POC ABG Total CO2 41 (23-27mmol/L) 06/07/19 02:50 POC ABG O2 Sat 96 06/07/19 02:50 PT/INR, D-dimer PT 12.8 Sec. (12.2-14.9) 06/07/19 02:45 INR 0.95 (0.87-1.13) 06/07/19 02:45 Abnormal lab findings: Abnormal Labs 06/07/19 06/07/19 06/07/19 02:45 02:45 02:45 WBC RBC 3.46 L Hgb 10.9 L Hct 32.9 L MCV 95 H Lymph % (Auto) 13.2 L Seg Neutrophils % 75.7 H Seg Neuts % (Manual) Lymphocytes % (Manual) Seg Neutrophils # Man Lymphocytes # (Manual) POC ABG pH Sodium Potassium 5.1 H Chloride 94.0 L Carbon Dioxide 33 H BUN 48 H Glucose 195 H POC Glucose Hemoglobin A1c Lactic Acid Calcium Magnesium 2.70 H ALT 6 L Troponin T 0.134 H* NT-Pro-B Natriuret Pep 1129 H Albumin 3.6 L Triglycerides 153 H 06/07/19 06/07/19 06/07/19 02:45 02:45 02:50 WBC RBC Hgb Hct MCV Lymph % (Auto) Seg Neutrophils % Seg Neuts % (Manual) Lymphocytes % (Manual) Seg Neutrophils # Man Lymphocytes # (Manual) POC ABG pH 7.341 L Sodium Potassium Chloride Carbon Dioxide BUN Glucose POC Glucose Hemoglobin A1c 7.2 H Lactic Acid 2.20 H* Calcium Magnesium ALT Troponin T NT-Pro-B Natriuret Pep Albumin Triglycerides 06/07/19 06/07/19 06/07/19 04:31 06:01 06:01 WBC RBC Hgb Hct MCV Lymph % (Auto) Seg Neutrophils % Seg Neuts % (Manual) Lymphocytes % (Manual) Seg Neutrophils # Man Lymphocytes # (Manual) POC ABG pH Sodium Potassium Chloride Carbon Dioxide BUN Glucose POC Glucose Hemoglobin A1c Lactic Acid 2.80 H* 3.40 H* Calcium Magnesium ALT Troponin T 0.148 H* NT-Pro-B Natriuret Pep Albumin Triglycerides 06/07/19 06/07/19 06/07/19 08:56 09:22 09:50 WBC RBC Hgb Hct MCV Lymph % (Auto) Seg Neutrophils % Seg Neuts % (Manual) Lymphocytes % (Manual) Seg Neutrophils # Man Lymphocytes # (Manual) POC ABG pH Sodium Potassium Chloride Carbon Dioxide BUN Glucose POC Glucose 323 H Hemoglobin A1c Lactic Acid 3.30 H* 2.60 H* Calcium Magnesium ALT Troponin T NT-Pro-B Natriuret Pep Albumin Triglycerides 06/07/19 06/07/19 06/07/19 12:26 13:22 17:08 WBC RBC Hgb Hct MCV Lymph % (Auto) Seg Neutrophils % Seg Neuts % (Manual) Lymphocytes % (Manual) Seg Neutrophils # Man Lymphocytes # (Manual) POC ABG pH Sodium Potassium 5.1 H Chloride 95.2 L Carbon Dioxide BUN 48 H Glucose 344 H POC Glucose 366 H 316 H Hemoglobin A1c Lactic Acid Calcium Magnesium ALT Troponin T NT-Pro-B Natriuret Pep Albumin Triglycerides 06/07/19 06/08/19 06/08/19 22:06 03:30 03:30 WBC RBC 3.10 L Hgb 9.8 L Hct 29.1 L MCV Lymph % (Auto) Seg Neutrophils % Seg Neuts % (Manual) 87.0 H Lymphocytes % (Manual) 9.0 L Seg Neutrophils # Man 8.7 H Lymphocytes # (Manual) 0.9 L POC ABG pH Sodium 146 H Potassium Chloride 96.1 L Carbon Dioxide 38 H D BUN 39 H Glucose 294 H POC Glucose 331 H Hemoglobin A1c Lactic Acid Calcium Magnesium ALT Troponin T NT-Pro-B Natriuret Pep Albumin Triglycerides 06/08/19 06/08/19 06/08/19 08:11 12:23 16:43 WBC RBC Hgb Hct MCV Lymph % (Auto) Seg Neutrophils % Seg Neuts % (Manual) Lymphocytes % (Manual) Seg Neutrophils # Man Lymphocytes # (Manual) POC ABG pH Sodium Potassium Chloride Carbon Dioxide BUN Glucose POC Glucose 272 H 314 H 326 H Hemoglobin A1c Lactic Acid Calcium Magnesium ALT Troponin T NT-Pro-B Natriuret Pep Albumin Triglycerides 06/08/19 06/09/19 06/09/19 20:53 05:57 05:57 WBC 11.6 H RBC 3.42 L Hgb 10.7 L Hct 32.2 L MCV Lymph % (Auto) Seg Neutrophils % Seg Neuts % (Manual) 87.0 H Lymphocytes % (Manual) 8.0 L Seg Neutrophils # Man 10.1 H Lymphocytes # (Manual) 0.9 L POC ABG pH Sodium Potassium 3.3 L D Chloride 90.4 L Carbon Dioxide 38 H BUN 40 H Glucose 281 H POC Glucose 278 H Hemoglobin A1c Lactic Acid Calcium 8.3 L Magnesium ALT Troponin T NT-Pro-B Natriuret Pep Albumin Triglycerides 06/09/19 08:47 WBC RBC Hgb Hct MCV Lymph % (Auto) Seg Neutrophils % Seg Neuts % (Manual) Lymphocytes % (Manual) Seg Neutrophils # Man Lymphocytes # (Manual) POC ABG pH Sodium Potassium Chloride Carbon Dioxide BUN Glucose POC Glucose 262 H Hemoglobin A1c Lactic Acid Calcium Magnesium ALT Troponin T NT-Pro-B Natriuret Pep Albumin Triglycerides
[2019-06-09] MEDS ORDERED: POTASSIUM CHLORIDE ER 20 MEQ TAB PO SCH (15:14)
[2019-06-09] MEDS: INSULIN GLARGINE 100 UNITS/ML SUB-Q SCH (21:54)
[2019-06-09] MEDS: MELATONIN 5 MG TAB PO SCH (21:55)
[2019-06-09] MEDS: DIVALPROEX SPRINKLE 125 MG CAP PO SCH (21:56)
[2019-06-09] MEDS: traZODone 50 MG TAB PO SCH (21:56)
[2019-06-10] MEDS: LORazepam 0.5 MG TAB PO PRN ×2 (00:24→17:33)
[2019-06-10] MEDS: PIPERACILLIN/TAZOBACTAM 3.375 3.375 GM/50 ML BAG IV SCH ×3 (05:33→23:24)
[2019-06-10] MEDS: FUROSEMIDE 40 MG/4 ML INJ IV SCH ×2 (05:33→17:23)
[2019-06-10] MEDS: methylPREDNISolone Sod Succinate 125 MG/2 ML INJ IV SCH ×3 (05:33→23:28)
[2019-06-10] MEDS: ACETAMINOPHEN 325 MG TAB PO PRN (06:39)
[2019-06-10] MEDS: BUDESONIDE 0.5 MG/2 ML NEBU IH SCH ×2 (07:29→21:25)
[2019-06-10] MEDS: INSULIN LISPRO 100 UNIT/ML SUB-Q SCH ×4 (08:45→23:44)
[2019-06-10] MEDS: CHOLECALCIFEROL (VIT D3) 5,000 UNIT TAB PO SCH (09:01)
[2019-06-10] MEDS: HEPARIN 5,000 UNIT/1 ML VIAL SUB-Q SCH ×2 (09:04→23:29)
[2019-06-10] MEDS: LISINOPRIL 40 MG TAB PO SCH (09:04)
[2019-06-10] MEDS: busPIRone 10 MG TAB PO SCH ×2 (09:04→23:27)
[2019-06-10] MEDS: METOPROLOL TARTRATE 50 MG TAB PO SCH ×2 (09:05→23:27)
[2019-06-10] MEDS: ASPIRIN EC 81 MG TAB PO SCH (09:06)
[2019-06-10] MEDS: amLODIPine 10 MG TAB PO SCH (09:06)
--- NOTE | 2019-06-10 11:29 | Discharge Summary ---
Providers - Providers Date of Admission: 06/07/19 04:49 Date of discharge: 06/11/19 Attending physician: VIKA SIMMONS 06/07/19 05:16 Consult to Physician [CONS] Routine Comment: Consulting Provider: BRICE GUARDADO Physician Instructions: Reason For Exam: left pleural effusions 06/07/19 06:18 Consult to Physician [CONS] Routine Comment: Consulting Provider: FLORENTIN FERNANDEZ Physician Instructions: Reason For Exam: Elevated troponin, AE CHF 06/09/19 11:22 Speech Therapy Evaluation and Treat [CONS] Routine Reason For Exam: cerebral palsy/pna--r/o silent aspiration Primary care physician: DRIVER GUARD Hospitalization Reason for admission: pna Condition: Stable Hospital course: 48-year old male who resides in a [facility] with PMH for morbid obesity, diabetes, COPD, diastolic heart failure and peripheral arterial disease with previous above-knee amputation who presented to this hospital with shortness of breath, wheezing. The patient was admitted with diagnosis of acute hypoxic respiratory failure secondary to COPD exacerbation, acute bronchitis, bilateral pneumonia with parapneumonic effusion. The patient was seen by cardiology in consultation and felt that patient had chronic diastolic heart failure without acute exacerbation. It was reported on admission that the O2 saturation was in the 70's. Chest x-ray reported interstitial edema, right lower lobe airspace changes with left pleural effusion. An ECG is sinus rhythm ,left ventricular hypertrophy voltage, left axis deviation, old anterior infarct. The patient was treated with appropriate IV antibiotics and had slow but significant improvement throughout hospitalization. Disposition: WI TO HOME OR SELFCARE Time spent for discharge: 35 - Discharge Diagnoses (1) Acute respiratory failure with hypoxia and hypercapnia Status: Acute (2) Hypoxia Status: Acute (3) Pneumonia Status: Acute Qualifiers: Pneumonia type: due to unspecified organism Laterality: unspecified laterality Lung location: unspecified part of lung Qualified Code(s): J18.9 - Pneumonia, unspecified organism (4) Acute respiratory failure with hypoxia Status: Acute (5) Cerebral palsy Status: Acute (6) Morbid obesity with BMI of 45.0-49.9, adult Status: Acute (7) Obesity hypoventilation syndrome Status: Acute (8) HTN (hypertension) Status: Chronic Qualifiers: Hypertension type: unspecified Qualified Code(s): I10 - Essential (primary) hypertension (9) IDDM (insulin dependent diabetes mellitus) Status: Chronic Core Measure Documentation - Palliative Care Palliative Care/ Comfort Measures: Not Applicable - Core Measures Any of the following diagnoses?: none Exam - Constitutional Vitals: Temp Pulse Resp BP Pulse Ox 98.6 F 78 20 120/78 97 06/10/19 05:11 06/10/19 09:06 06/10/19 07:46 06/10/19 09:06 06/10/19 07:46 General appearance: Present: no acute distress, well-nourished - EENT Eyes: Present: PERRL ENT: hearing intact, clear oral mucosa - Neck Neck: Present: supple, normal ROM - Respiratory Respiratory effort: normal Respiratory: bilateral: CTA - Cardiovascular Heart Sounds: Present: S1 & S2. Absent: rub, click - Extremities Extremities: pulses symmetrical, No edema Peripheral Pulses: within normal limits - Abdominal General gastrointestinal: Present: soft, non-tender, non-distended, normal bowel sounds Male genitourinary: Present: normal - Integumentary Integumentary: Present: clear, warm, dry - Musculoskeletal Musculoskeletal: gait normal, strength equal bilaterally - Psychiatric Psychiatric: appropriate mood/affect, intact judgment & insight - Neurologic Neurologic: CNII-XII intact, moves all extremities Plan Activity: advance as tolerated Weight Bearing Status: Weight Bear as Tolerated Diet: regular Follow up with: PRIMARY CARE,MD [Primary Care Provider] - 3-5 Days Prescriptions: levoFLOXacin [Levaquin] 750 mg PO QDAY #7 tablet methylPREDNISolone [Medrol 4MG DOSEPAK (21 tabs)] 4 mg PO QAM #1 tab.ds.pk
--- NOTE | 2019-06-10 11:35 | Progress Note ---
Assessment and Plan Assessment and plan: Acute hypoxic respiratory failure. Etiology is multifactorial. Pulmonary following. Continue O2 to maintain sats greater than 92%. Acute COPD exacerbation. Continue bronchodilators/nebulizers, steroids and IV antibiotics. Obstructive sleep apnea. Bilateral pneumonia with left parapneumonic effusion. Continue IV antibiotics and follow serial chest x-ray. Cerebral palsy. Given the patient's long history of cerebral palsy and admission of pneumonia, we will obtain speech evaluation to rule out silent aspiration. Diabetes mellitus type 2. Continue Accu-Cheks and sliding scale insulin. History of right AKA. Hypertension. Resume antihypertensive medications. - Patient Problems (1) Acute respiratory failure with hypoxia and hypercapnia Current Visit: Yes Status: Acute (2) Hypoxia Current Visit: Yes Status: Acute (3) Pneumonia Current Visit: Yes Status: Acute Qualifiers: Pneumonia type: due to unspecified organism Laterality: unspecified laterality Lung location: unspecified part of lung Qualified Code(s): J18.9 - Pneumonia, unspecified organism (4) Acute respiratory failure with hypoxia Current Visit: No Status: Acute (5) Cerebral palsy Current Visit: No Status: Acute (6) Morbid obesity with BMI of 45.0-49.9, adult Current Visit: No Status: Acute (7) Obesity hypoventilation syndrome Current Visit: No Status: Acute (8) HTN (hypertension) Current Visit: No Status: Chronic Qualifiers: Hypertension type: unspecified Qualified Code(s): I10 - Essential (primary) hypertension (9) IDDM (insulin dependent diabetes mellitus) Current Visit: No Status: Chronic History Interval history: No new issues overnight. Patient reportedly still with dyspnea on exertion. Hospitalist Physical - Constitutional Vitals: Temp Pulse Resp BP Pulse Ox 98.6 F 78 20 120/78 97 06/10/19 05:11 06/10/19 09:06 06/10/19 07:46 06/10/19 09:06 06/10/19 07:46 General appearance: Present: no acute distress, well-nourished - EENT Eyes: Present: PERRL, EOM intact ENT: hearing intact, clear oral mucosa, dentition normal - Neck Neck: Present: supple, normal ROM - Respiratory Respiratory effort: normal Respiratory: bilateral: CTA, diminished, rhonchi, wheezing - Cardiovascular Rhythm: regular Heart Sounds: Present: S1 & S2. Absent: gallop, rub - Extremities Extremities: no ischemia, No edema, Full ROM - Abdominal General gastrointestinal: soft, non-tender, non-distended, normal bowel sounds - Integumentary Integumentary: Present: clear, warm, dry - Neurologic Neurologic: CNII-XII intact, moves all extremities Results - Labs CBC & Chem 7: 06/09/19 05:57 06/10/19 08:33 Labs: Laboratory Last Values WBC 11.6 K/mm3 (4.5-11.0) H 06/09/19 05:57 RBC 3.42 M/mm3 (3.65-5.03) L 06/09/19 05:57 Hgb 10.7 gm/dl (11.8-15.2) L 06/09/19 05:57 Hct 32.2 % (35.5-45.6) L 06/09/19 05:57 MCV 94 fl (84-94) 06/09/19 05:57 MCH 31 pg (28-32) 06/09/19 05:57 MCHC 33 % (32-34) 06/09/19 05:57 RDW 13.6 % (13.2-15.2) 06/09/19 05:57 Plt Count 319 K/mm3 (140-440) 06/09/19 05:57 Lymph % (Auto) 13.2 % (13.4-35.0) L 06/07/19 02:45 [place] % (Auto) 7.2 % (0.0-7.3) 06/07/19 02:45 Eos % (Auto) 3.4 % (0.0-4.3) 06/07/19 02:45 Baso % (Auto) 0.5 % (0.0-1.8) 06/07/19 02:45 Lymph # 1.2 K/mm3 (1.2-5.4) 06/07/19 02:45 [place] # 0.7 K/mm3 (0.0-0.8) 06/07/19 02:45 Eos # 0.3 K/mm3 (0.0-0.4) 06/07/19 02:45 Baso # 0.0 K/mm3 (0.0-0.1) 06/07/19 02:45 Add Manual Diff Complete 06/09/19 05:57 Total Counted 100 06/09/19 05:57 Seg Neutrophils % 75.7 % (40.0-70.0) H 06/07/19 02:45 Seg Neuts % (Manual) 87.0 % (40.0-70.0) H 06/09/19 05:57 Band Neutrophils % 0 % 06/09/19 05:57 Lymphocytes % (Manual) 8.0 % (13.4-35.0) L 06/09/19 05:57 Reactive Lymphs % (Man) 0 % 06/09/19 05:57 Monocytes % (Manual) 2.0 % (0.0-7.3) 06/09/19 05:57 Eosinophils % (Manual) 0 % (0.0-4.3) 06/09/19 05:57 Basophils % (Manual) 0 % (0.0-1.8) 06/09/19 05:57 Metamyelocytes % 0 % 06/09/19 05:57 Myelocytes % 3.0 % 06/09/19 05:57 Promyelocytes % 0 % 06/09/19 05:57 Blast Cells % 0 % 06/09/19 05:57 Nucleated RBC % Not Reportable 06/09/19 05:57 Seg Neutrophils # 6.9 K/mm3 (1.8-7.7) 06/07/19 02:45 Seg Neutrophils # Man 10.1 K/mm3 (1.8-7.7) H 06/09/19 05:57 Band Neutrophils # 0.0 K/mm3 06/09/19 05:57 Lymphocytes # (Manual) 0.9 K/mm3 (1.2-5.4) L 06/09/19 05:57 Abs React Lymphs (Man) 0.0 K/mm3 06/09/19 05:57 Monocytes # (Manual) 0.2 K/mm3 (0.0-0.8) 06/09/19 05:57 Eosinophils # (Manual) 0.0 K/mm3 (0.0-0.4) 06/09/19 05:57 Basophils # (Manual) 0.0 K/mm3 (0.0-0.1) 06/09/19 05:57 Metamyelocytes # 0.0 K/mm3 06/09/19 05:57 Myelocytes # 0.3 K/mm3 06/09/19 05:57 Promyelocytes # 0.0 K/mm3 06/09/19 05:57 Blast Cells # 0.0 K/mm3 06/09/19 05:57 WBC Morphology Not Reportable 06/09/19 05:57 Hypersegmented Neuts Not Reportable 06/09/19 05:57 Hyposegmented Neuts Not Reportable 06/09/19 05:57 Hypogranular Neuts Not Reportable 06/09/19 05:57 Smudge Cells Not Reportable 06/09/19 05:57 Toxic Granulation Not Reportable 06/09/19 05:57 Toxic Vacuolation Not Reportable 06/09/19 05:57 Dohle Bodies Not Reportable 06/09/19 05:57 Pelger-Huet Anomaly Not Reportable 06/09/19 05:57 Shabbir Rods Not Reportable 06/09/19 05:57 Platelet Estimate Consistent w auto 06/09/19 05:57 Clumped Platelets Not Reportable 06/09/19 05:57 Plt Clumps, EDTA Not Reportable 06/09/19 05:57 Large Platelets Not Reportable 06/09/19 05:57 Giant Platelets Not Reportable 06/09/19 05:57 Platelet Satelliting Not Reportable 06/09/19 05:57 Plt Morphology Comment Not Reportable 06/09/19 05:57 RBC Morphology Not Reportable 06/09/19 05:57 Dimorphic RBCs Not Reportable 06/09/19 05:57 Polychromasia Rare 06/09/19 05:57 Hypochromasia Not Reportable 06/09/19 05:57 Poikilocytosis Not Reportable 06/09/19 05:57 Anisocytosis Not Reportable 06/09/19 05:57 Microcytosis Not Reportable 06/09/19 05:57 Macrocytosis Few 06/09/19 05:57 Spherocytes Not Reportable 06/09/19 05:57 Pappenheimer Bodies Not Reportable 06/09/19 05:57 Sickle Cells Not Reportable 06/09/19 05:57 Target Cells Not Reportable 06/09/19 05:57 Tear Drop Cells Not Reportable 06/09/19 05:57 Ovalocytes Not Reportable 06/09/19 05:57 Stomatocytes Few 06/09/19 05:57 Helmet Cells Not Reportable 06/09/19 05:57 Squires-Revere Bodies Not Reportable 06/09/19 05:57 [place] Rings Not Reportable 06/09/19 05:57 [place] Cells Not Reportable 06/09/19 05:57 Bite Cells Not Reportable 06/09/19 05:57 Crenated Cell Not Reportable 06/09/19 05:57 Elliptocytes Not Reportable 06/09/19 05:57 Acanthocytes (Spur) Not Reportable 06/09/19 05:57 Rouleaux Not Reportable 06/09/19 05:57 Hemoglobin C Crystals Not Reportable 06/09/19 05:57 Schistocytes Not Reportable 06/09/19 05:57 Malaria parasites Not Reportable 06/09/19 05:57 Jay Bodies Not Reportable 06/09/19 05:57 Hem Pathologist Commnt No 06/09/19 05:57 PT 12.8 Sec. (12.2-14.9) 06/07/19 02:45 INR 0.95 (0.87-1.13) 06/07/19 02:45 APTT 28.7 Sec. (24.2-36.6) 06/07/19 02:45 POC ABG pH 7.341 (7.35-7.45) L 06/07/19 02:50 POC ABG pO2 90 (80-105) 06/07/19 02:50 POC ABG HCO3 39.1 (22-26 mml/L) 06/07/19 02:50 POC ABG Total CO2 41 (23-27mmol/L) 06/07/19 02:50 POC ABG O2 Sat 96 06/07/19 02:50 POC ABG Base Excess 13 ((-2) - (+3)mmol/L) 06/07/19 02:50 FiO2 60 % 06/07/19 02:50 Sodium 143 mmol/L (137-145) 06/09/19 05:57 Potassium 3.6 mmol/L (3.6-5.0) 06/10/19 08:33 Chloride 90.4 mmol/L (98-107) L 06/09/19 05:57 Carbon Dioxide 38 mmol/L (22-30) H 06/09/19 05:57 Anion Gap 18 mmol/L 06/09/19 05:57 BUN 40 mg/dL (9-20) H 06/09/19 05:57 Creatinine 1.1 mg/dL (0.8-1.5) 06/09/19 05:57 Estimated GFR > 60 ml/min 06/09/19 05:57 BUN/Creatinine Ratio 36 % 06/09/19 05:57 Glucose 281 mg/dL (75-100) H 06/09/19 05:57 POC Glucose 210 (70-105) H 06/10/19 08:41 Hemoglobin A1c 7.2 % (4-6) H 06/07/19 02:45 Lactic Acid 1.20 mmol/L (0.7-2.0) 06/07/19 13:22 Calcium 8.3 mg/dL (8.4-10.2) L 06/09/19 05:57 Magnesium 2.70 mg/dL (1.7-2.3) H 06/07/19 02:45 Total Bilirubin 0.20 mg/dL (0.1-1.2) 06/07/19 02:45 AST 11 units/L (5-40) 06/07/19 02:45 ALT 6 units/L (7-56) L 06/07/19 02:45 Alkaline Phosphatase 63 units/L (35-129) 06/07/19 02:45 Total Creatine Kinase 121 units/L (55-170) 06/07/19 06:01 CK-MB (CK-2) 3.0 ng/mL (0.0-4.0) 06/07/19 06:01 CK-MB (CK-2) Rel Index 2.4 (0-4) 06/07/19 06:01 Troponin T 0.148 ng/mL (0.00-0.029) H* 06/07/19 06:01 NT-Pro-B Natriuret Pep 1129 pg/mL (0-900) H 06/07/19 02:45 Total Protein 7.5 g/dL (6.3-8.2) 06/07/19 02:45 Albumin 3.6 g/dL (3.9-5) L 06/07/19 02:45 Albumin/Globulin Ratio 0.9 % 06/07/19 02:45 Triglycerides 153 mg/dL (2-149) H 06/07/19 02:45 Cholesterol 183 mg/dL (50-199) 06/07/19 02:45 LDL Cholesterol Direct 109 mg/dL (50-130) 06/07/19 02:45 HDL Cholesterol 40 mg/dL (40-59) 06/07/19 02:45 Cholesterol/HDL Ratio 4.57 % 06/07/19 02:45 Urine Color Yellow (Yellow) 06/07/19 17:30 Urine Turbidity Clear (Clear) 06/07/19 17:30 Urine pH 5.0 (5.0-7.0) 06/07/19 17:30 Ur Specific [place] 1.012 (1.003-1.030) 06/07/19 17:30 Urine Protein 100 mg/dl mg/dL (Negative) 06/07/19 17:30 Urine Glucose (UA) >=500 mg/dL (Negative) 06/07/19 17:30 Urine Ketones Tr mg/dL (Negative) 06/07/19 17:30 Urine Blood Mod (Negative) 06/07/19 17:30 Urine Nitrite Neg (Negative) 06/07/19 17:30 Urine Bilirubin Neg (Negative) 06/07/19 17:30 Urine Urobilinogen < 2.0 mg/dL (<2.0) 06/07/19 17:30 Ur Leukocyte Esterase Neg (Negative) 06/07/19 17:30 Urine WBC (Auto) 1.0 /HPF (0.0-6.0) 06/07/19 17:30 Urine RBC (Auto) 3.0 /HPF (0.0-6.0) 06/07/19 17:30 Hyaline Casts 1 /LPF 06/07/19 17:30 Urine Mucus Few /HPF 06/07/19 17:30 Active Medications - Current Medications Current Medications: Generic Name Dose Route Start Last Admin Trade Name Freq PRN Reason Stop Dose Admin Acetaminophen 650 mg 06/07/19 05:09 06/10/19 06:39 Tylenol PO 650 mg Q4H PRN Administration Pain MILD(1-3)/Fever >100.5/PEREYRA Albuterol 2.5 mg 06/07/19 05:09 Proventil IH Q3HRT PRN Shortness Of Breath Amlodipine Besylate 10 mg 06/07/19 10:00 06/10/19 09:06 Amlodipine PO 10 mg DAILY SHAE Administration Aspirin 81 mg 06/07/19 10:00 06/10/19 09:06 Halfprin Ec PO 81 mg DAILY SHAE Administration Budesonide 0.5 mg 06/07/19 08:00 06/10/19 07:29 Pulmicort IH 0.5 mg Q12HRT SHAE Administration Buspirone HCl 10 mg 06/07/19 10:00 06/10/19 09:04 Buspar PO 10 mg BID SHAE Administration Cholecalciferol 5,000 unit 06/07/19 10:00 06/10/19 09:01 Vitamin D3 PO 5,000 unit QDAY SHAE Administration Dextrose 50 ml 06/07/19 05:09 D50w (25gm) Syringe IV Q30MIN PRN Hypoglycemia Protocol Divalproex Sodium 125 mg 06/07/19 22:00 06/09/19 21:56 Depakote Sprinkle PO 125 mg QHS SHAE Administration Furosemide 40 mg 06/07/19 18:00 06/10/19 05:33 Lasix IV 40 mg BID@0600,1800 SHAE Administration Guaifenesin 15 ml 06/07/19 16:16 Guaifenesin Dm Syrup PO Q6H PRN Cough Heparin Sodium (Porcine) 5,000 unit 06/07/19 10:00 06/10/19 09:04 Heparin SUB-Q 5,000 unit Q12HR SHAE Administration Piperacillin Sod/Tazobactam Sod 3.375 gm in 50 mls @ 100 mls/hr 06/07/19 12:00 06/10/19 05:33 Zosyn/Ns 3.375gm/50ml IV 06/11/19 11:59 100 mls/hr Q8HR SHAE Administration Protocol Insulin Glargine 53 units 06/07/19 22:00 06/09/19 21:54 Lantus SUB-Q 53 units QHS SHAE Administration Insulin Human Lispro 0 unit 06/07/19 07:30 06/10/19 08:45 Humalog SUB-Q 3 unit ACHS SHAE Administration Protocol Lisinopril 40 mg 06/07/19 10:00 06/10/19 09:04 Zestril PO 40 mg QDAY SHAE Administration Lorazepam 0.5 mg 06/07/19 16:06 06/10/19 00:24 Ativan PO 0.5 mg BID PRN Administration Agitation Melatonin 5 mg 06/07/19 22:00 06/09/19 21:55 Melatonin PO 5 mg QHS SHAE Administration Methylprednisolone Sodium Succinate 80 mg 06/07/19 14:00 06/10/19 05:33 Solu-Medrol IV 80 mg Q8HR SHAE Administration Metoprolol Tartrate 50 mg 06/07/19 22:00 06/10/19 09:05 Metoprolol PO 50 mg BID SHAE Administration Nitroglycerin 0.4 mg 06/07/19 05:09 Nitrostat SL .Q5MIN PRN Chest Pain Ondansetron HCl 4 mg 06/07/19 05:09 Zofran IV Q8H PRN Nausea And Vomiting Sodium Chloride 10 ml 06/07/19 10:00 06/10/19 09:07 Sodium Chloride Flush Syringe 10 Ml IV 10 ml BID SHAE Administration Sodium Chloride 10 ml 06/07/19 05:09 Sodium Chloride Flush Syringe 10 Ml IV PRN PRN LINE FLUSH Trazodone HCl 50 mg 06/07/19 22:00 06/09/19 21:56 Desyrel PO 50 mg QHS SHAE Administration
--- NOTE | 2019-06-10 11:49 | Progress Note ---
Assessment and Plan Patient alert, awake. Resting on 5 litres O2. O2 saturation 97%. Patient says breathing better, no acute respiratory distress. BIPAP standby in the room. Recommend BIPAP during the night and PRN for shortness of breath during day time. Pt is afebrile and has mild leukocytosis. Pt is on Zosyn. - Patient Problems (1) Acute respiratory failure with hypoxia and hypercapnia Current Visit: Yes Status: Acute Plan to address problem: patient is on O2 5 litres. BIPAP standby in the room. Patient is on Albuterol and atrovent aerosol treatments q6 hrs Continue Solu-medrol Continue Zosyn Continue sub-q heparin Recommend GI prophylaxis (2) Pneumonia Current Visit: Yes Status: Acute Qualifiers: Pneumonia type: due to unspecified organism Laterality: unspecified laterality Lung location: unspecified part of lung Qualified Code(s): J18.9 - Pneumonia, unspecified organism Plan to address problem: Patient is on Zosyn (3) Acute exacerbation of CHF (congestive heart failure) Current Visit: No Status: Acute Qualifiers: Heart failure type: combined systolic and diastolic Qualified Code(s): I50.43 - Acute on chronic combined systolic (congestive) and diastolic (congestive) heart failure Plan to address problem: Managment as per primary and cardiology (4) Cerebral palsy Current Visit: No Status: Acute Plan to address problem: Management as per primary care (5) Morbid obesity with BMI of 45.0-49.9, adult Current Visit: No Status: Acute Plan to address problem: Recommend to lose weight Recommend exercise and diet (6) Obesity hypoventilation syndrome Current Visit: No Status: Acute Plan to address problem: BiPAP during night time and PRN during day time for shortness of breath (7) Sleep apnea in adult Current Visit: No Status: Acute Plan to address problem: BiPAP during night time and PRN during day time for shortness of breath (8) HTN (hypertension) Current Visit: No Status: Chronic Qualifiers: Hypertension type: unspecified Qualified Code(s): I10 - Essential (primary) hypertension Plan to address problem: management as per primary team (9) IDDM (insulin dependent diabetes mellitus) Current Visit: No Status: Chronic Plan to address problem: Management as per primary care team Subjective Date of service: 06/10/19 Interval history: Patient alert, awake. Resting on 5 litres O2. O2 saturation 97%. Patient says breathing better, no acute respiratory distress. BIPAP standby in the room. Recommend BIPAP during the night and PRN for shortness of breath during day time. Pt is afebrile and has mild leukocytosis. Pt is on Zosyn. Objective Vital Signs - 12hr 06/10/19 06/10/19 06/10/19 00:18 05:11 07:31 Temperature 98.0 F 98.6 F Pulse Rate 67 68 Pulse Rate [ 99 H Anterior Throughout] Respiratory 18 18 Rate Respiratory 18 Rate [Anterior Throughout] Blood Pressure 202/97 Blood Pressure 138/68 [Left] O2 Sat by Pulse 96 98 Oximetry 06/10/19 06/10/19 06/10/19 07:32 07:46 09:04 Temperature Pulse Rate 78 Pulse Rate [ Anterior Throughout] Respiratory 20 Rate Respiratory Rate [Anterior Throughout] Blood Pressure 120/78 Blood Pressure [Left] O2 Sat by Pulse 96 97 Oximetry 06/10/19 06/10/19 09:05 09:06 Temperature Pulse Rate 78 78 Pulse Rate [ Anterior Throughout] Respiratory Rate Respiratory Rate [Anterior Throughout] Blood Pressure 120/78 120/78 Blood Pressure [Left] O2 Sat by Pulse Oximetry Constitutional: no acute distress, alert Eyes: non-icteric ENT: oropharynx moist Neck: supple, no lymphadenopathy, no JVD Effort: mildly labored Ascultation: Bilateral: diminished breath sounds (Bases), rhonchi Cardiovascular: regular rate and rhythm Gastrointestinal: normoactive bowel sounds Integumentary: normal Extremities: no cyanosis, no edema Neurologic: non-focal exam, pupils equal and round Psychiatric: anxious CBC and BMP: 06/09/19 05:57 06/10/19 08:33 ABG, PT/INR, D-dimer: ABG POC ABG pH 7.341 (7.35-7.45) L 06/07/19 02:50 POC ABG pO2 90 (80-105) 06/07/19 02:50 POC ABG HCO3 39.1 (22-26 mml/L) 06/07/19 02:50 POC ABG Total CO2 41 (23-27mmol/L) 06/07/19 02:50 POC ABG O2 Sat 96 06/07/19 02:50 PT/INR, D-dimer PT 12.8 Sec. (12.2-14.9) 06/07/19 02:45 INR 0.95 (0.87-1.13) 06/07/19 02:45 Abnormal lab findings: Abnormal Labs 06/07/19 06/07/19 06/07/19 02:45 02:45 02:45 WBC RBC 3.46 L Hgb 10.9 L Hct 32.9 L MCV 95 H Lymph % (Auto) 13.2 L Seg Neutrophils % 75.7 H Seg Neuts % (Manual) Lymphocytes % (Manual) Seg Neutrophils # Man Lymphocytes # (Manual) POC ABG pH Sodium Potassium 5.1 H Chloride 94.0 L Carbon Dioxide 33 H BUN 48 H Glucose 195 H POC Glucose Hemoglobin A1c Lactic Acid Calcium Magnesium 2.70 H ALT 6 L Troponin T 0.134 H* NT-Pro-B Natriuret Pep 1129 H Albumin 3.6 L Triglycerides 153 H 06/07/19 06/07/19 06/07/19 02:45 02:45 02:50 WBC RBC Hgb Hct MCV Lymph % (Auto) Seg Neutrophils % Seg Neuts % (Manual) Lymphocytes % (Manual) Seg Neutrophils # Man Lymphocytes # (Manual) POC ABG pH 7.341 L Sodium Potassium Chloride Carbon Dioxide BUN Glucose POC Glucose Hemoglobin A1c 7.2 H Lactic Acid 2.20 H* Calcium Magnesium ALT Troponin T NT-Pro-B Natriuret Pep Albumin Triglycerides 06/07/19 06/07/19 06/07/19 04:31 06:01 06:01 WBC RBC Hgb Hct MCV Lymph % (Auto) Seg Neutrophils % Seg Neuts % (Manual) Lymphocytes % (Manual) Seg Neutrophils # Man Lymphocytes # (Manual) POC ABG pH Sodium Potassium Chloride Carbon Dioxide BUN Glucose POC Glucose Hemoglobin A1c Lactic Acid 2.80 H* 3.40 H* Calcium Magnesium ALT Troponin T 0.148 H* NT-Pro-B Natriuret Pep Albumin Triglycerides 06/07/19 06/07/19 06/07/19 08:56 09:22 09:50 WBC RBC Hgb Hct MCV Lymph % (Auto) Seg Neutrophils % Seg Neuts % (Manual) Lymphocytes % (Manual) Seg Neutrophils # Man Lymphocytes # (Manual) POC ABG pH Sodium Potassium Chloride Carbon Dioxide BUN Glucose POC Glucose 323 H Hemoglobin A1c Lactic Acid 3.30 H* 2.60 H* Calcium Magnesium ALT Troponin T NT-Pro-B Natriuret Pep Albumin Triglycerides 06/07/19 06/07/19 06/07/19 12:26 13:22 17:08 WBC RBC Hgb Hct MCV Lymph % (Auto) Seg Neutrophils % Seg Neuts % (Manual) Lymphocytes % (Manual) Seg Neutrophils # Man Lymphocytes # (Manual) POC ABG pH Sodium Potassium 5.1 H Chloride 95.2 L Carbon Dioxide BUN 48 H Glucose 344 H POC Glucose 366 H 316 H Hemoglobin A1c Lactic Acid Calcium Magnesium ALT Troponin T NT-Pro-B Natriuret Pep Albumin Triglycerides 06/07/19 06/08/19 06/08/19 22:06 03:30 03:30 WBC RBC 3.10 L Hgb 9.8 L Hct 29.1 L MCV Lymph % (Auto) Seg Neutrophils % Seg Neuts % (Manual) 87.0 H Lymphocytes % (Manual) 9.0 L Seg Neutrophils # Man 8.7 H Lymphocytes # (Manual) 0.9 L POC ABG pH Sodium 146 H Potassium Chloride 96.1 L Carbon Dioxide 38 H D BUN 39 H Glucose 294 H POC Glucose 331 H Hemoglobin A1c Lactic Acid Calcium Magnesium ALT Troponin T NT-Pro-B Natriuret Pep Albumin Triglycerides 06/08/19 06/08/19 06/08/19 08:11 12:23 16:43 WBC RBC Hgb Hct MCV Lymph % (Auto) Seg Neutrophils % Seg Neuts % (Manual) Lymphocytes % (Manual) Seg Neutrophils # Man Lymphocytes # (Manual) POC ABG pH Sodium Potassium Chloride Carbon Dioxide BUN Glucose POC Glucose 272 H 314 H 326 H Hemoglobin A1c Lactic Acid Calcium Magnesium ALT Troponin T NT-Pro-B Natriuret Pep Albumin Triglycerides 06/08/19 06/09/19 06/09/19 20:53 05:57 05:57 WBC 11.6 H RBC 3.42 L Hgb 10.7 L Hct 32.2 L MCV Lymph % (Auto) Seg Neutrophils % Seg Neuts % (Manual) 87.0 H Lymphocytes % (Manual) 8.0 L Seg Neutrophils # Man 10.1 H Lymphocytes # (Manual) 0.9 L POC ABG pH Sodium Potassium 3.3 L D Chloride 90.4 L Carbon Dioxide 38 H BUN 40 H Glucose 281 H POC Glucose 278 H Hemoglobin A1c Lactic Acid Calcium 8.3 L Magnesium ALT Troponin T NT-Pro-B Natriuret Pep Albumin Triglycerides 06/09/19 06/09/19 06/09/19 08:47 11:22 16:49 WBC RBC Hgb Hct MCV Lymph % (Auto) Seg Neutrophils % Seg Neuts % (Manual) Lymphocytes % (Manual) Seg Neutrophils # Man Lymphocytes # (Manual) POC ABG pH Sodium Potassium Chloride Carbon Dioxide BUN Glucose POC Glucose 262 H 316 H 332 H Hemoglobin A1c Lactic Acid Calcium Magnesium ALT Troponin T NT-Pro-B Natriuret Pep Albumin Triglycerides 06/09/19 06/10/19 21:15 08:41 WBC RBC Hgb Hct MCV Lymph % (Auto) Seg Neutrophils % Seg Neuts % (Manual) Lymphocytes % (Manual) Seg Neutrophils # Man Lymphocytes # (Manual) POC ABG pH Sodium Potassium Chloride Carbon Dioxide BUN Glucose POC Glucose 361 H 210 H Hemoglobin A1c Lactic Acid Calcium Magnesium ALT Troponin T NT-Pro-B Natriuret Pep Albumin Triglycerides
[2019-06-10] MEDS: DIVALPROEX SPRINKLE 125 MG CAP PO SCH (23:27)
[2019-06-10] MEDS: traZODone 50 MG TAB PO SCH (23:27)
[2019-06-10] MEDS: MELATONIN 5 MG TAB PO SCH (23:27)
[2019-06-10] MEDS: INSULIN GLARGINE 100 UNITS/ML SUB-Q SCH (23:45)
[2019-06-11] MEDS: FUROSEMIDE 40 MG/4 ML INJ IV SCH (06:07)
[2019-06-11] MEDS: PIPERACILLIN/TAZOBACTAM 3.375 3.375 GM/50 ML BAG IV SCH (06:08)
[2019-06-11] MEDS: methylPREDNISolone Sod Succinate 125 MG/2 ML INJ IV SCH (06:08)
[2019-06-11] MEDS: INSULIN LISPRO 100 UNIT/ML SUB-Q SCH ×2 (09:05→12:53)
[2019-06-11] MEDS: ASPIRIN EC 81 MG TAB PO SCH (09:44)
[2019-06-11] MEDS: busPIRone 10 MG TAB PO SCH (09:44)
[2019-06-11] MEDS: METOPROLOL TARTRATE 50 MG TAB PO SCH (09:44)
[2019-06-11] MEDS: CHOLECALCIFEROL (VIT D3) 5,000 UNIT TAB PO SCH (09:45)
[2019-06-11] MEDS: amLODIPine 10 MG TAB PO SCH (09:45)
[2019-06-11] MEDS: LISINOPRIL 40 MG TAB PO SCH (09:46)
[2019-06-11] MEDS: HEPARIN 5,000 UNIT/1 ML VIAL SUB-Q SCH (09:47)
[2019-06-11] MEDS: LORazepam 0.5 MG TAB PO PRN (09:53)
[2019-06-11] MEDS: BUDESONIDE 0.5 MG/2 ML NEBU IH SCH (09:54)
--- NOTE | 2019-06-11 10:00 | Progress Note ---
Assessment and Plan (1) Acute respiratory failure with hypoxia and hypercapnia Current Visit: Yes Status: Acute Plan to address problem: Wean supplemental oxygen for O2 sats >90% Complete antibiotics Steroid taper Bronchodilators Influenza and pneumonia vaccinations per protocol Aspiration precautions with modified diet (2) Pneumonia Current Visit: Yes Status: Acute Qualifiers: Pneumonia type: due to unspecified organism Laterality: unspecified late rality Lung location: unspecified part of lung Qualified Code(s): J18.9 - Pneumonia, unspecified organism Plan to address problem: Patient is on Zosyn (3) Acute exacerbation of CHF (congestive heart failure) Current Visit: No Status: Acute Qualifiers: Heart failure type: combined systolic and diastolic Qualified Code(s): I50.43 - Acute on chronic combined systolic (congestive) and diastolic (congestive) heart failure Plan to address problem: Managment as per primary and cardiology (4) Cerebral palsy Current Visit: No Status: Acute Plan to address problem: Management as per primary care (5) Morbid obesity with BMI of 45.0-49.9, adult Current Visit: No Status: Acute Plan to address problem: Recommend to lose weight Recommend exercise and diet (6) Obesity hypoventilation syndrome Current Visit: No Status: Acute Plan to address problem: BiPAP during night time and PRN during day time for shortness of breath (7) Sleep apnea in adult Current Visit: No Status: Acute Plan to address problem: BiPAP during night time and PRN during day time for shortness of breath (8) HTN (hypertension) Current Visit: No Status: Chronic Qualifiers: Hypertension type: unspecified Qualified Code(s): I10 - Essential (primary) hypertension Plan to address problem: management as per primary team (9) IDDM (insulin dependent diabetes mellitus) Current Visit: No Status: Chronic Plan to address problem: Management as per primary care team Discharge planning Subjective Date of service: 06/11/19 Interval history: Follow up for: acute hypoxic-hypercapnic respiratory failure; pneumonia Seen and examined. Vitals, labs, medications, chart and imaging reviewed. Sitting up quietly in bed, on supplemental oxygen, being fed by RN. He states he is feeling better, no chest pain. A little shortness of breath. No diarrhea or vomiting. Obese Objective Vital Signs - 12hr 06/10/19 06/10/19 06/10/19 22:00 23:23 23:25 Temperature 98.2 F 98.0 F Pulse Rate 67 67 Respiratory 18 18 Rate Blood Pressure 171/126 176/78 O2 Sat by Pulse 93 Oximetry 06/10/19 06/11/19 06/11/19 23:27 02:33 05:07 Temperature 98.4 F Pulse Rate 66 63 Respiratory 18 Rate Blood Pressure 171/126 151/67 O2 Sat by Pulse 95 95 Oximetry 06/11/19 06/11/19 06/11/19 09:44 09:45 09:46 Temperature Pulse Rate 74 74 74 Respiratory Rate Blood Pressure 152/68 152/68 152/68 O2 Sat by Pulse Oximetry Constitutional: no acute distress, alert, other (morbid obesity) Eyes: non-icteric ENT: oropharynx moist Neck: supple, no lymphadenopathy, no JVD Effort: normal Ascultation: Bilateral: diminished breath sounds (Bases), rhonchi Cardiovascular: regular rate and rhythm, other (S1,S2) Gastrointestinal: normoactive bowel sounds Integumentary: normal Extremities: no cyanosis, no edema, other (s/p right AKA) Neurologic: non-focal exam, pupils equal and round Psychiatric: mood appropriate, affect normal CBC and BMP: 06/09/19 05:57 06/10/19 08:33 ABG, PT/INR, D-dimer: ABG POC ABG pH 7.341 (7.35-7.45) L 06/07/19 02:50 POC ABG pO2 90 (80-105) 06/07/19 02:50 POC ABG HCO3 39.1 (22-26 mml/L) 06/07/19 02:50 POC ABG Total CO2 41 (23-27mmol/L) 06/07/19 02:50 POC ABG O2 Sat 96 06/07/19 02:50 PT/INR, D-dimer PT 12.8 Sec. (12.2-14.9) 06/07/19 02:45 INR 0.95 (0.87-1.13) 06/07/19 02:45 Abnormal lab findings: Abnormal Labs 06/07/19 06/07/19 06/07/19 02:45 02:45 02:45 WBC RBC 3.46 L Hgb 10.9 L Hct 32.9 L MCV 95 H Lymph % (Auto) 13.2 L Seg Neutrophils % 75.7 H Seg Neuts % (Manual) Lymphocytes % (Manual) Seg Neutrophils # Man Lymphocytes # (Manual) POC ABG pH Sodium Potassium 5.1 H Chloride 94.0 L Carbon Dioxide 33 H BUN 48 H Glucose 195 H POC Glucose Hemoglobin A1c Lactic Acid Calcium Magnesium 2.70 H ALT 6 L Troponin T 0.134 H* NT-Pro-B Natriuret Pep 1129 H Albumin 3.6 L Triglycerides 153 H 06/07/19 06/07/19 06/07/19 02:45 02:45 02:50 WBC RBC Hgb Hct MCV Lymph % (Auto) Seg Neutrophils % Seg Neuts % (Manual) Lymphocytes % (Manual) Seg Neutrophils # Man Lymphocytes # (Manual) POC ABG pH 7.341 L Sodium Potassium Chloride Carbon Dioxide BUN Glucose POC Glucose Hemoglobin A1c 7.2 H Lactic Acid 2.20 H* Calcium Magnesium ALT Troponin T NT-Pro-B Natriuret Pep Albumin Triglycerides 06/07/19 06/07/19 06/07/19 04:31 06:01 06:01 WBC RBC Hgb Hct MCV Lymph % (Auto) Seg Neutrophils % Seg Neuts % (Manual) Lymphocytes % (Manual) Seg Neutrophils # Man Lymphocytes # (Manual) POC ABG pH Sodium Potassium Chloride Carbon Dioxide BUN Glucose POC Glucose Hemoglobin A1c Lactic Acid 2.80 H* 3.40 H* Calcium Magnesium ALT Troponin T 0.148 H* NT-Pro-B Natriuret Pep Albumin Triglycerides 06/07/19 06/07/19 06/07/19 08:56 09:22 09:50 WBC RBC Hgb Hct MCV Lymph % (Auto) Seg Neutrophils % Seg Neuts % (Manual) Lymphocytes % (Manual) Seg Neutrophils # Man Lymphocytes # (Manual) POC ABG pH Sodium Potassium Chloride Carbon Dioxide BUN Glucose POC Glucose 323 H Hemoglobin A1c Lactic Acid 3.30 H* 2.60 H* Calcium Magnesium ALT Troponin T NT-Pro-B Natriuret Pep Albumin Triglycerides 06/07/19 06/07/19 06/07/19 12:26 13:22 17:08 WBC RBC Hgb Hct MCV Lymph % (Auto) Seg Neutrophils % Seg Neuts % (Manual) Lymphocytes % (Manual) Seg Neutrophils # Man Lymphocytes # (Manual) POC ABG pH Sodium Potassium 5.1 H Chloride 95.2 L Carbon Dioxide BUN 48 H Glucose 344 H POC Glucose 366 H 316 H Hemoglobin A1c Lactic Acid Calcium Magnesium ALT Troponin T NT-Pro-B Natriuret Pep Albumin Triglycerides 06/07/19 06/08/19 06/08/19 22:06 03:30 03:30 WBC RBC 3.10 L Hgb 9.8 L Hct 29.1 L MCV Lymph % (Auto) Seg Neutrophils % Seg Neuts % (Manual) 87.0 H Lymphocytes % (Manual) 9.0 L Seg Neutrophils # Man 8.7 H Lymphocytes # (Manual) 0.9 L POC ABG pH Sodium 146 H Potassium Chloride 96.1 L Carbon Dioxide 38 H D BUN 39 H Glucose 294 H POC Glucose 331 H Hemoglobin A1c Lactic Acid Calcium Magnesium ALT Troponin T NT-Pro-B Natriuret Pep Albumin Triglycerides 06/08/19 06/08/19 06/08/19 08:11 12:23 16:43 WBC RBC Hgb Hct MCV Lymph % (Auto) Seg Neutrophils % Seg Neuts % (Manual) Lymphocytes % (Manual) Seg Neutrophils # Man Lymphocytes # (Manual) POC ABG pH Sodium Potassium Chloride Carbon Dioxide BUN Glucose POC Glucose 272 H 314 H 326 H Hemoglobin A1c Lactic Acid Calcium Magnesium ALT Troponin T NT-Pro-B Natriuret Pep Albumin Triglycerides 06/08/19 06/09/19 06/09/19 20:53 05:57 05:57 WBC 11.6 H RBC 3.42 L Hgb 10.7 L Hct 32.2 L MCV Lymph % (Auto) Seg Neutrophils % Seg Neuts % (Manual) 87.0 H Lymphocytes % (Manual) 8.0 L Seg Neutrophils # Man 10.1 H Lymphocytes # (Manual) 0.9 L POC ABG pH Sodium Potassium 3.3 L D Chloride 90.4 L Carbon Dioxide 38 H BUN 40 H Glucose 281 H POC Glucose 278 H Hemoglobin A1c Lactic Acid Calcium 8.3 L Magnesium ALT Troponin T NT-Pro-B Natriuret Pep Albumin Triglycerides 06/09/19 06/09/19 06/09/19 08:47 11:22 16:49 WBC RBC Hgb Hct MCV Lymph % (Auto) Seg Neutrophils % Seg Neuts % (Manual) Lymphocytes % (Manual) Seg Neutrophils # Man Lymphocytes # (Manual) POC ABG pH Sodium Potassium Chloride Carbon Dioxide BUN Glucose POC Glucose 262 H 316 H 332 H Hemoglobin A1c Lactic Acid Calcium Magnesium ALT Troponin T NT-Pro-B Natriuret Pep Albumin Triglycerides 06/09/19 06/10/19 06/10/19 21:15 08:41 13:01 WBC RBC Hgb Hct MCV Lymph % (Auto) Seg Neutrophils % Seg Neuts % (Manual) Lymphocytes % (Manual) Seg Neutrophils # Man Lymphocytes # (Manual) POC ABG pH Sodium Potassium Chloride Carbon Dioxide BUN Glucose POC Glucose 361 H 210 H 247 H Hemoglobin A1c Lactic Acid Calcium Magnesium ALT Troponin T NT-Pro-B Natriuret Pep Albumin Triglycerides 06/10/19 06/10/19 06/11/19 17:32 20:12 08:52 WBC RBC Hgb Hct MCV Lymph % (Auto) Seg Neutrophils % Seg Neuts % (Manual) Lymphocytes % (Manual) Seg Neutrophils # Man Lymphocytes # (Manual) POC ABG pH Sodium Potassium Chloride Carbon Dioxide BUN Glucose POC Glucose 273 H 335 H 214 H Hemoglobin A1c Lactic Acid Calcium Magnesium ALT Troponin T NT-Pro-B Natriuret Pep Albumin Triglycerides
[2019-06-11 11:07] VITALS: BP 182/86
[2019-06-11 11:43] LABS: ABG Base Excess 11.1 mmol/L (-2.0-3.0); ABG HCO3 35.9 mmol/L (20.0-26.0); ABG Methemoglobin 0.4 % (0.0-1.5); ABG Oxygen Saturation 95.2 % (95.0-99.0); ABG PCO2 48.6 mm Hg; ABG PH 7.487 pH Units (7.350-7.450); ABG PO2 66.2 mm Hg (80.0-90.0)
--- NOTE | 2019-06-11 12:19 | XRay Report ---
CHEST 2 VIEWS INDICATION: follow up for pneumonia. COMPARISON: 03/03/2018. FINDINGS: Support devices: None. Heart: Stable mild cardiomegaly. Lungs/Pleura: Mild left basilar effusion/volume loss and right basilar atelectasis. No significant in filtrate.. IMPRESSION: 1 mild left basilar atelectasis/effusion. 2. Mild right basilar atelectasis. Signer Name: Bill Xiao MD Signed: 06/11/2019 12:14 PM Workstation Name: [employer] [id number]
== END 2019-06-11 13:30 | disposition home or self-care (01) | DRG 193 ==
LOC: ED 01:59 → 4A 04:49
PROVIDERS: ADMIT Internal Medicine; ATTEND Hospitalist
PROC: 4A033R1 Measurement of Arterial Saturation, Peripheral, Percutaneous Approach (ICD-10-PCS; principal; 2019-06-07)
PROC: 5A09357 Assistance with Respiratory Ventilation, Less than 24 Consecutive Hours, Continuous Positive Airway Pressure (ICD-10-PCS; 2019-06-07)
PROC: 4A033R1 Measurement of Arterial Saturation, Peripheral, Percutaneous Approach (ICD-10-PCS; 2019-06-11)
DX: J18.9 Pneumonia, unspecified organism (principal); J96.02 Acute respiratory failure with hypercapnia; J96.01 Acute respiratory failure with hypoxia; I13.0 Hypertensive heart and chronic kidney disease with heart failure and stage 1 through stage 4 chronic kidney disease, or unspecified chronic kidney disease; J44.0 Chronic obstructive pulmonary disease with (acute) lower respiratory infection; E66.2 Morbid (severe) obesity with alveolar hypoventilation; R65.10 Systemic inflammatory response syndrome (SIRS) of non-infectious origin without acute organ dysfunction; J90 Pleural effusion, not elsewhere classified; Z68.42 Body mass index [BMI] 45.0-49.9, adult; J44.1 Chronic obstructive pulmonary disease with (acute) exacerbation; I50.32 Chronic diastolic (congestive) heart failure; G83.9 Paralytic syndrome, unspecified; E11.9 Type 2 diabetes mellitus without complications; J20.9 Acute bronchitis, unspecified; E87.5 Hyperkalemia; R53.81 Other malaise; E05.90 Thyrotoxicosis, unspecified without thyrotoxic crisis or storm; D64.9 Anemia, unspecified; N18.9 Chronic kidney disease, unspecified; E11.22 Type 2 diabetes mellitus with diabetic chronic kidney disease; J44.9 Chronic obstructive pulmonary disease, unspecified; Z71.3 Dietary counseling and surveillance; Z89.611 Acquired absence of right leg above knee; Z99.81 Dependence on supplemental oxygen; Z79.4 Long term (current) use of insulin; Z79.899 Other long term (current) drug therapy
CPT/HCPCS: 36415; 36600; 71045; 71046; 80048; 80053; 80061; 81001; 82140; 82550; 82553; 82803; 82962; 83036; 83735; 83880; 84132; 84484; 85007; 85025; 85610; 85730; 87040; 87086; 87116; 93005; 93010; 94640; 94644; 94760; G0378; J1644; J1815; J1940; J2543; J2930; J3370; J7040